=== PATIENT | female | born 1940 | race Caucasian/White ===

== ENCOUNTER → 2023-09-17 13:10 | Outpatient (REF) | payer MEDICARE, OTHER, SELFPAY | LOC: RAD 13:10 | PROVIDERS: ATTENDING PHYSICIAN Internal Medicine Critical Care Medicine | DX: I27.20 Pulmonary hypertension, unspecified (principal); R91.8 Other nonspecific abnormal finding of lung field | CPT/HCPCS: 71250 ==

== ENCOUNTER 2023-11-18 10:12 | Emergency (ER) | payer MEDICARE, OTHER, SELFPAY ==
[2023-11-18 10:38] VITALS: BP 127/57
[2023-11-18 11:01] LABS: % Basophils 0.2 % (0-2); % Eosinophils 0.1 % (0-6); % Immature Granulocytes 0.5 % (0-0.5); % Lymphocytes 4.7 % (20.5-51.1); % Monocytes 4.7 % (1.7-9.3); % Neutrophils 89.8 % (42.2-75.2); Absolute Lymphocytes 0.4 10^3/uL (1.2-3.4); Absolute Monocytes 0.4 10^3/uL (0.1-0.6); Absolute Neutrophils 7.3 10^3/uL (1.4-6.5); Hematocrit 39.5 % (37.0-47.0); Hemoglobin 13.4 g/dL (12.0-16.0); Mean Corp Hgb Conc. 33.9 g/dL (33.0-37.0); Mean Corpuscular Volume 97.3 fL (81.0-99.0); Mean Platelet Volume 9.8 fL (7.4-10.4); Nucleated Red Blood Cells % 0 %; Platelet Count 172 10^3/uL (130-400); Red Blood Cell Count 4.06 10^6/uL (4.20-5.40); Red Cell Dist. Width 14.6 % (11.5-14.5); White Blood Cell Count 8.2 10^3/uL (4.8-10.8)
[2023-11-18 11:19] LABS: ALT (SGPT) 49 U/L (0-35); AST (SGOT) 65 U/L (14-36); Albumin 4.3 g/dl (3.5-5.0); Alkaline Phosphatase 57 U/L (38-126); Blood Urea Nitrogen 15 mg/dl (7-17); Calcium 9.9 mg/dl (8.4-10.2); Carbon Dioxide 24 mmol/L (22-30); Chloride 104 mmol/L (98-107); Glucose 158 mg/dl (70-99); Potassium 3.8 mmol/L (3.5-5.1); Sodium 137 mmol/L (135-145); Total Bilirubin 0.5 mg/dl (0.2-1.3); Total Protein 7.6 g/dl (6.3-8.2); eGFR > 60.00
[2023-11-18 11:24] LABS: NT-proBNP 1190 pg/ml; Troponin I < 0.012 ng/ml
[2023-11-18 12:46] VITALS: BP 114/86
[2023-11-18 13:00] VITALS: BP 105/64
[2023-11-18 14:00] VITALS: BP 130/76
[2023-11-18] MEDS: DUONEB 3 ML INH (14:01)
--- NOTE | 2023-11-18 14:03 | ED.GENMED ---
History of Present Illness
General
Chief Complaint: Breathing Problem
Source: patient
Exam Limitations: none
Time Seen by Provider: 11/18/23 12:30
Nursing documentation reviewed up to this point in time: agreed with
Travel History
Have you had any contact with someone who has COVID-19?: No
Do you have any symptoms of coronavirus? Fever > 100 degrees, chills, cough, shortness of breath, sore throat, loss of taste or smell, muscle aches, or headache?: No
History of Present Illness
History of Present Illness:
pt is a 83 y/o F with h/o PE, afib on eliquis, CHF on lasix M/W/F, pul htn, chronic dyspnea
former smoker
here with sob x 5 days
has some nasal congestion and right ear popping as well'
dry cough and dyspnea with some chest tightness
she went to [facility] ([place] 2 days ago for theses ymptoms and was given instructions to inc pred to 40 x 3, 30 x 3 etc
she usually alternates between 10 mg and 5 mg
pt is on 3rd day of her pred 40 mg and she is not better so she is here to be sure there is nothing else going on
she deneis fever, chills, chest pain, leg swelling, vomiting, nausea
pt uses nasal saline and steroid and inhalers.
Past History
Past History
ED Past Medical History: Arrthythmia (afib), COPD, Other (lupus), Other (Pul HTN, Aortic regurg,Last echo 11/04/17 EF 55-60%, thickened aortic/mitral valves) and Other (PE 1975 while )
ED Past Surgical History: None
Patient has exhibited threatening behavior?: No
Social History
Tobacco: Former smoker
Alcohol: Occasional
Drug: None
Personal:
Living: with family
Employment: Employed
Family History
Family History: Hypertension
Review of Systems
Review of Systems
Allergies reviewed?: Yes
All Other Systems: Not applicable
Phy Exam
Physical Exam
Physical Exam:
GENERAL: Alert , in no apparent distress
EYE: pupils equal and reactive
NECK: Supple
ENT: o/p clr, mmm.
CARDIAC: Regular rate and rhythm .no edema
LUNGS: insp and exp wheezing throughout, moving good air, minimally tachypneic low 20s
ABDOMEN: Soft, without focal tenderness, no r/g, no cvat, normal bowel sounds
NEUROLOGICAL: Alert and oriented, no focal neuro deficits
SKIN: Warm and dry, skin intact.
MUSCULOSKELETAL: No edema, well perfused. neg zunilda's sign
PSYCH: Normal and appropriate interaction.
Scores
Heart Failure Risk
Heart Failure Risk Score: Not Applicable
Course
Orders/Labs/Results
Orders:
Orders
11/18/23 10:43
Electrocardiogram (*1) Urgent
Reason for Study: Other
Other Reason for Exam: Respiratory Distress
CR Chest - 2 Views Urgent
Comment:
Reason For Exam: respiratory distress
11/18/23 10:51
Complete Blood Count/With Diff Urgent
Comprehensive Metabolic Panel Urgent
NT-proBNP Urgent
Troponin I Urgent
11/18/23 13:42
Ipratropium/Albuterol Sulfate [Duoneb] 3 ml INH R NOW ONE
11/18/23 13:59
COVID-19 Antigen Urgent
Source: Nasal Swab
Influenza A+B Rapid Molecular Urgent
KARLENE Source: Nasal Swab
Specimen Description:
Abnormal Lab Results
11/18/23
10:51
RBC 4.06 L 10^6/uL
(4.20-5.40)
MCH 33.0 H pg
(27.0-31.0)
RDW 14.6 H %
(11.5-14.5)
Absolute Neuts (auto) 7.3 H 10^3/uL
(1.4-6.5)
Absolute Lymphs (auto) 0.4 L 10^3/uL
(1.2-3.4)
Neutrophils % 89.8 H %
(42.2-75.2)
Lymphocytes % 4.7 L %
(20.5-51.1)
Glucose 158 H mg/dl
(70-99)
AST 65 H U/L
(14-36)
ALT 49 H U/L
(0-35)
11/18/23 10:51
11/18/23 10:51
Vital Signs
Initial and Last Documented VS:
Initial Vital Signs
Temp Pulse Resp BP Pulse Ox
98.4 F 87 20 127/57 95
11/18/23 10:38 11/18/23 10:38 11/18/23 10:38 11/18/23 10:38 11/18/23 10:38
Last Documented Vital Signs
Temp Pulse Resp BP Pulse Ox
98.4 F 90 22 108/92 92
11/18/23 10:38 11/18/23 15:23 11/18/23 15:23 11/18/23 15:23 11/18/23 12:46
MDM/Problems Addressed
Differential Diagnosis Includes:
pulm htn, asthma, covid, flu, pneumonia, chf
MDM/Problems Addressed:
83 y/o F with h/o pulm htn, PE, afib on eliquis
here with sob/TURNER for the past few days, uri symptoms
seen by pulm and was instructed to increase her prednisone from 10-40 for 3 days, 30 for 3 days, 20 for 3 days, 10 for 3 days. She is on her third day of 40 and having the continued dyspnea and wheezing. She also has some right ear popping
sensation when she swallows and a little sinus pressure. Patient has not had a fever. On exam she is mildly tachypneic in the low 20s, has a pulse ox of 92% at rest. Otherwise is afebrile, has some wheezing in her lungs throughout but is moving
good air. She has no signs of CHF, no crackles and no edema. Her workup here shows a BNP of 1100 which is higher but significantly lower than her previous CHF exacerbation when she was in the . Her chest x-ray was independently reviewed by
me, there is no pneumonia or signs of heart failure. Patient's troponin was negative. Her EKG was nonischemic. She has a mild transaminitis. I suspect that she has a viral upper respiratory infection triggering her lung disease. She was given a
DuoNeb which cleared the wheezing. I spoke with her porcelain buildup assistant Dr. tripp who recommended that she go up to 40 mg for 5 total days and then go down by 10 every 5 days patient is very motivated to go home despite feeling slightly tachypneic
still after the wheezing resolved. She was able to ambulate around the department and speak normally, was mildly tachypneic but did not drop her pulse ox.
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 She is aware that she could end up returning for worsening shortness of breath or dyspnea but would like to trial going home with a longer steroid taper.
*Critical Care Note
Total Time (30-74mins, 75-104mins- exclusive of procedures): Not Applicable
ED Attending Note
-
Portions of this chart may have been created with voice recognition software.� Occasional wrong word or��sound alike� substitutions may have occurred due to the inherent limitations of voice recognition software.
Discharge Plan
Departure
Patient Disposition: Home (Routine Discharge)
Date of Disposition: 11/18/23
Time of Disposition: 15:30
Patient with high blood pressure during this ER visit?: No
Condition: Fair
Covid-19: Not Applicable
Discharge Problem:
Pulmonary hypertension, Wheezing
Instructions: Pulmonary Hypertension, Adult (DC)
Prescriptions:
New
prednisone 10 mg tablet
10 mg PO DIRECTED Qty: 20 0RF
Rx Instructions:
40 mg x 2 days, 30 mg x 2 days, 20 mg x 2 days, 10 mg x 2 days
No Action
ascorbic acid (vitamin C) [Vitamin C] 500 MG tablet
500 mg PO DAILY
vitamin E 268 mg (400 unit) Capsule
268 mg PO DAILY
furosemide 20 mg tablet
20 mg PO DAILY
prednisone 10 mg Tablet
10 mg PO DIRECTED
Patient Comments:
11/18/2023, pt. filled this med. on 11/16/2023; per pt., pt.'s instructions for how to take this med. just changed in the hospital to:
40 mg x 5 days
30 mg x 5 days
20 mg x 5 days
10 mg x 5 days
Rx Instructions:
11/18/2023,
40 mg x 3 days
30 mg x 3 days
20 mg x 3 days
10 mg x 3 days
diltiazem HCl 180 mg Capsule,Extended Release 24 Hr
180 mg PO DAILY
albuterol sulfate 1.25 mg/3 mL Solution For Nebulization
1.25 mg INHALATION R Q4HPRN PRN (Reason: sob)
benzonatate 100 mg Capsule
100 mg PO TID PRN (Reason: cough)
Systane (PF) 0.4-0.3 % Dropperette
1 drp BOTH EYES DAILY
cholecalciferol (vitamin D3) 25 mcg (1,000 unit) Tablet
25 mcg PO DAILY
Eliquis 2.5 mg Tablet
2.5 mg PO BID
Breztri Aerosphere 160-9-4.8 mcg/actuation Hfa Aerosol Inhaler
2 inh INHALATION R BID
Excedrin
2 tab PO DAILYPRN PRN (Reason: migraine)
Immune Globulin (Human)
1 dose IV Q4W
Referrals:
Liz Urena MD [Family Provider] -
Activity Restrictions/Additional Instructions:
Your workup here seems to be pointing toward pulmonary cause for your wheezing and shortness of breath. Your porcelain buildup assistant recommended that we keep you up on prednisone, 40 for 5 days total, then reduce to 30 mg once a day for 5 days, then 20 mg
once a day for 5 days, then 10 mg once a day for 5 days. Your chest x-ray did not show any obvious congestive heart failure but please continue to take the Lasix as instructed.
You were short of breath but maintained your oxygen when you walked around. Please have a very low threshold for returning to the ER for worsening shortness of breath or any chest discomfort with walking, worsening wheezing or any concerns.
For your ear symptoms you can use Flonase or what ever nasal steroid you that you use as well as Zyrtec once a day which is an antihistamine, this is [id number]. Sometimes a decongestant can also help that, you can try phenylephrine but be
cautious because this can raise your heart rate and with your atrial fibrillation it may not be a good idea to use this.
There was no sign of infection in your ear at this time. If you continue to have sinus pressure or ear pain or fluid behind your ear you may need additional treatment but hopefully the steroids will help.
Interventions
Interventions:
*Risk Screen - Suicide Last Done: 11/18/23 12:43
*General Assessment Last Done: 11/18/23 12:43
*Neglect/Abuse Screening Last Done: 11/18/23 12:43
ED- Fall Risk Assessment Last Done: 11/18/23 15:43
*ED COVID-19 Vaccine History Last Done: 11/18/23 10:38
*Nursing Disposition Last Done: 11/18/23 15:43
ED- Cardiac Assessment Last Done: 11/18/23 12:43
ED- Pulmonary Assessment Last Done: 11/18/23 12:43
Discharge Date and Time
Discharge Date/Time: 11/18/23 15:57
Print Language: YORUBA
[2023-11-18 14:23] LABS: COVID-19 Antigen Negative (Negative)
[2023-11-18 15:01] VITALS: BP 132/75
[2023-11-18 15:23] VITALS: BP 108/92
== END 2023-11-18 15:57 | disposition home or self-care (01) ==
LOC: EMR 10:12
PROVIDERS: Physician Assistant; EMERGENCY PHYSICIAN Student in an Organized Health Care Education/Training Program; FAMILY PHYSICIAN Internal Medicine
DX: I27.20 Pulmonary hypertension, unspecified (principal); R06.2 Wheezing; Z87.891 Personal history of nicotine dependence; I50.9 Heart failure, unspecified; Z79.01 Long term (current) use of anticoagulants; Z11.52 Encounter for screening for COVID-19
CPT/HCPCS: 99285; 94640; 71046; 80053; 83880; 84484; 85025; 87502; 87811; 93005

== ENCOUNTER → 2024-02-05 09:45 | Outpatient (REF) | payer MEDICARE, OTHER, SELFPAY | LOC: RAD 09:45 | PROVIDERS: ATTENDING PHYSICIAN Nurse Practitioner; FAMILY PHYSICIAN Internal Medicine | DX: J40 Bronchitis, not specified as acute or chronic (principal) | CPT/HCPCS: 71046 ==

== ENCOUNTER 2024-02-15 12:03 | Inpatient (IN) | payer MEDICARE, OTHER, SELFPAY ==
[2024-02-15 09:00] VITALS: BP 105/89; BMI 15.8
--- NOTE | 2024-02-15 09:21 | ED.GENMED ---
History of Present Illness
General
Chief Complaint: Breathing Problem
Source: patient, family and previous hospital records
Time Seen by Provider: 02/15/24 08:55
History of Present Illness
History of Present Illness:
This patient is an 83-year-old female with a variety of medical chronic problems who presents emergency department with increasing cough and dyspnea. Patient states she has not really been feeling her usual self for at least the last 7 to 10 days,
characterized by cough productive of yellow or green sputum, and increasing dyspnea. She also noted increasing lower extremity edema last week and her Lasix was increased from 20 to 40 mg with improvement. She has been in touch with her doctor and
was started on amoxicillin for a 7-day course which she finished last Thursday. She was told that there are abnormalities on her chest x-ray requiring pulmonary follow-up and she has an appointment this for that. Her prednisone was
changed from 10 to 20 mg and she has been also taking Mucinex as well as her usual medications. Patient denies anorexia, fever, chills, nausea, vomiting, chest pain. She does feel 'sore' in the thorax with cough. She denies urinary symptoms,
abdominal pain, back pain, or other complaints. Patient denies sore throat. She was diagnosed with COVID on January 22.
Past History
Past History
ED Past Medical History: Arrthythmia (afib), COPD, Other (lupus), Other (Pulm HTN, Aortic regurg,Last echo 11/04/17 EF 55-60%, thickened aortic/mitral valves) and Other (PE 1976 while , A-fib, hypertension, hyperlipidemia, COPD with
granulomatous disease)
Patient has exhibited threatening behavior?: No
Social History
Tobacco: Former smoker
Alcohol: Occasional
Drug: None
Personal:
Living: with family
Employment: Employed
Family History
Family History: Hypertension
Phy Exam
Physical Exam
Physical Exam:
GENERAL: Alert , in no apparent distress but obvious cough noted
EYE: pupils equal and reactive
NECK: Supple, no significant adenopathy.
ENT: o/p clr, mmm.
CARDIAC: Irregularly irregular
LUNGS: Equal breath sounds bilaterally, no acute respiratory distress, current cough, diffuse wheezes noted, no stridor
ABDOMEN: Soft, without focal tenderness, no r/g, no cvat
NEUROLOGICAL: Alert and oriented, no focal neuro deficits
SKIN: Warm and dry, skin intact.
MUSCULOSKELETAL: No edema, well perfused.
PSYCH: Normal and appropriate interaction.
Scores
Heart Failure Risk
Heart Failure Risk Score: Not Applicable
Course
Orders/Labs/Results
Orders:
Orders
02/15/24 08:58
ECG [Electrocardiogram (*1)] Urgent
Reason for Study: Shortness of Breath
EKG- Treatment ONCE
02/15/24 09:19
Cardiac Monitoring- Treatment ONCE
Pulse Ox/cont/shift [RESP] Urgent
Quantity: 1
02/15/24 09:20
Dexamethasone Sod Phosphate [Decadron] 8 mg IV NOW STA
Ipratropium/Albuterol Sulfate [Duoneb] 3 ml INH R NOW ONE
CR Chest - 2 Views Urgent
Comment:
Reason For Exam: hx pulmhtn/copd, now incr cough/sob
02/15/24 09:50
COVID-19 Antigen Stat
Source: Nasal Swab
Complete Blood Count/With Diff Urgent
Comprehensive Metabolic Panel Urgent
Lactic Acid Q4H
Comment: CANCEL 2nd LACTIC ACID IF 1st LACTIC ACID IS LESS THAN 2
NT-proBNP Urgent
Comment: ADD ON
Troponin I Urgent
Blood Culture Urgent
KARLENE Source: Blood/Venous
Specimen Description:
Influenza A+B Rapid Molecular Urgent
KARLENE Source: Nasal Swab
Specimen Description:
02/15/24 Lunch
2 Gram Sodium [Sodium, 2 Gram]
At Your Request: Limited Participation
02/15/24 10:50
Azithromycin 500 mg/250 ml [Zithromax Infusion] 500 mg in 250 ml IV NOW
Furosemide [Lasix] 40 mg IV NOW STA
02/15/24 11:06
Add On- LAB Urgent
Tests Added?: NT pro-BNP
02/15/24 11:45
Admit/Transfer Patient As Directed
Co-Sign Provider:
Level of Care: Inpatient admission
Assign to:: Medical/Surgical
Physician / Group: Susi
Diagnosis: Pneumonia
Reason for Hospitalization: IV antibiotics, pulmonary consult
Expected length of stay greater than two midnights?: Yes
ELOS- Estimated Length of Stay in days: 4
I certify the patient meets the requirements for IP care: Yes
02/15/24 11:47
Code Status As Directed
Resuscitation Status: Full Code
02/15/24 12:18
Sputum Culture [Respiratory Culture/Gram Stain] Routine
KARLENE Source: Sputum
Specimen Description:
Date Specimen was Collected: 02/15/24
Time Specimen was Collected: 12:15
02/15/24 15:11
Acetaminophen [Tylenol] 650 mg PO Q6HPRN PRN
02/15/24 15:24
PULMONARY CONSULT Routine
Consulting Provider: Jules Simeon
Was physician already notified: Yes
Activity As Directed
Activity Level: Ambulate
Acapella [Rx Pep / Acapela] [RESP] Routine
Incentive Spirometry [Rx Incentive Spirometry] [RESP] Routine
Frequency: q1h while awake
Ot Eval And Treat Routine
Pt Eval And Treat Routine
Activity Level: Ambulate
DX Deep Vein Thrombosis Video Routine
02/15/24 18:00
Enoxaparin Sodium [Lovenox] 30 mg SC QPM
02/16/24 12:00
Azithromycin 500 mg/250 ml [Zithromax Infusion] 500 mg in 250 ml IV Q24H
Abnormal Lab Results
02/15/24
09:50
WBC 13.6 H 10^3/uL
(4.8-10.8)
RBC 3.61 L 10^6/uL
(4.20-5.40)
Hct 34.4 L %
(37.0-47.0)
MCH 35.2 H pg
(27.0-31.0)
RDW 17.1 H %
(11.5-14.5)
Abs Immat Gran (auto) 0.1 H 10^3/uL
(0-0.05)
Absolute Neuts (auto) 11.3 H 10^3/uL
(1.4-6.5)
Absolute Lymphs (auto) 0.6 L 10^3/uL
(1.2-3.4)
Absolute Monos (auto) 1.5 H 10^3/uL
(0.1-0.6)
Immature Gran % 0.8 H %
(0-0.5)
Neutrophils % 83.0 H %
(42.2-75.2)
Lymphocytes % 4.3 L %
(20.5-51.1)
Monocytes % 11.3 H %
(1.7-9.3)
BUN 18 H mg/dl
(7-17)
Glucose 104 H mg/dl
(70-99)
Total Bilirubin 1.4 H mg/dl
(0.2-1.3)
AST 47 H U/L
(14-36)
ALT 38 H U/L
(0-35)
02/15/24 09:50
02/15/24 09:50
Vital Signs
Initial and Last Documented VS:
Initial Vital Signs
Temp Pulse Resp BP Pulse Ox
98.5 F 87 22 105/89 91
02/15/24 09:00 02/15/24 09:00 02/15/24 09:00 02/15/24 09:00 02/15/24 09:00
Last Documented Vital Signs
Temp Pulse Resp BP Pulse Ox
97.8 F 83 18 123/75 93
02/15/24 15:30 02/15/24 15:30 02/15/24 15:30 02/15/24 15:30 02/15/24 15:30
*Critical Care Note
Total Time (30-74mins, 75-104mins- exclusive of procedures): Not Applicable
Update Note
Update Note:
Patient presents to the Emergency Department with cough and increasing shortness of
Number and Complexity of Problems Addressed at the Encounter
� Chronic conditions affecting care:
� Acute Exacerbation and/or Progression of Chronic Illness:
� Differential Diagnosis includes: But not limited to PE (although unlikely given patient fully anticoagulated), pneumonia, COPD exacerbation, ACS, bronchospasm, etc. etc.
Amount and/or Complexity of Data to be Reviewed and Analyzed
� I performed an independent evaluation of and my interpretation is:
EKG: Read by me, normal rate, A-fib, no acute ischemia
CT:
Xrays:Patchy right upper lobe opacification and probable patchy right middle lobe opacification suspicious for pneumonia. Cannot exclude patchy lingular opacification such as pneumonia.
Likely tiny bilateral pleural effusions.
Laboratory Studies:sl wbc elevation (?steroid related--demargination?) with neutrophil predominance, nonspec sl lft abnl
Other:
� Review of other/old records reveals: Chest x-ray from most recent states 'Multiple small bands of opacity in the right middle lobe and lingula which are probably secondary to peripheral endobronchial impaction and raise
suspicion for acute on chronic atypical mycobacterial infection.
2. Moderate bilateral lung hyperinflation.
3. SEVERE PULMONARY ARTERIAL HYPERTENSION.
4. Chronic granulomatous disease infection with calcified left hilar lymph nodes and small left lower lobe pulmonary granulomas. '
� Clinical information was obtained by an independent historian: Son who is bedside, prior records...pt hospitalist 07/2003 with hypoxic res infuss, copd exac, flu, etc.
� Prescriptions/Medications Considered but not given:
� Further testing considered but not performed:
Risk of Complications and/or Morbidity or Mortality of Patient Management
� Social determinants of health affecting care:
� Discussion with other providers (PCP, Hospitalists, Consultants, etc):
� Escalation of care including admission/observation vs risk of discharge considered: 10:52 AM patient remains stable on nasal cannula overall persistent wet cough noted here. Patient advised to give sputum sample and collection
cup given to her. Case discussed with pulmonary, Dr. Garcia, and we agreed to give Zmax now given potential for Mycobacterium as noted on chest x-ray. Patient may have a concurrent element of heart failure in addition to her predominance of pulmonary
complaints, Lasix and BMP ordered, likely will need echo as inpatient. Case discussed with Joe naranjo hospitalist for admission.
83 yr old with cough/ sob, suspect pna/copd exac as most likley etiology for sxs, some improvement with neb here, recommend abx, nebs, steroids, etc.
ED Attending Note
-
Portions of this chart may have been created with voice recognition software.� Occasional wrong word or��sound alike� substitutions may have occurred due to the inherent limitations of voice recognition software.
Discharge Plan
Departure
Patient Disposition: Admit
Date of Disposition: 02/15/24
Time of Disposition: 10:55
Admit to: Telemetry
Admit to doctor: susi
Presentation/result/management discussed w/ accepting MD/DO: Hospitalist
Condition: Fair
Discharge Problem:
Pneumonia
Interventions
Interventions:
*Risk Screen - Suicide Last Done: 02/15/24 09:15
*General Assessment Last Done: 02/15/24 09:30
*Neglect/Abuse Screening Last Done: 02/15/24 09:15
ED- Fall Risk Assessment Last Done: 02/15/24 15:47
*ED COVID-19 Vaccine History Last Done: 02/15/24 09:30
*Nursing Disposition Last Done: 02/15/24 15:47
ED- Cardiac Assessment Last Done: 02/15/24 09:00
ED- Pulmonary Assessment Last Done: 02/15/24 10:14
Discharge Date and Time
Discharge Date/Time: 02/15/24 15:47
[2024-02-15] MEDS: DECADRON 8 MG IV (09:26)
[2024-02-15] MEDS: DUONEB 3 ML INH (09:27)
[2024-02-15 10:07] LABS: % Basophils 0.2 % (0-2); % Eosinophils 0.4 % (0-6); % Immature Granulocytes 0.8 % (0-0.5); % Lymphocytes 4.3 % (20.5-51.1); % Monocytes 11.3 % (1.7-9.3); Absolute Eosinophils 0.1 10^3/uL (0-0.7); Absolute Immature Granulocytes 0.1 10^3/uL (0-0.05); Absolute Lymphocytes 0.6 10^3/uL (1.2-3.4); Absolute Monocytes 1.5 10^3/uL (0.1-0.6); Absolute Neutrophils 11.3 10^3/uL (1.4-6.5); Hematocrit 34.4 % (37.0-47.0); Hemoglobin 12.7 g/dL (12.0-16.0); Mean Corp Hgb Conc. 36.9 g/dL (33.0-37.0); Mean Corpuscular Hgb 35.2 pg (27.0-31.0); Mean Corpuscular Volume 95.3 fL (81.0-99.0); Mean Platelet Volume 8.8 fL (7.4-10.4); Nucleated Red Blood Cells % 0 %; Platelet Count 215 10^3/uL (130-400); Red Blood Cell Count 3.61 10^6/uL (4.20-5.40); Red Cell Dist. Width 17.1 % (11.5-14.5); White Blood Cell Count 13.6 10^3/uL (4.8-10.8)
[2024-02-15 10:19] LABS: ALT (SGPT) 38 U/L (0-35); AST (SGOT) 47 U/L (14-36); Albumin 3.9 g/dl (3.5-5.0); Alkaline Phosphatase 79 U/L (38-126); Blood Urea Nitrogen 18 mg/dl (7-17); Carbon Dioxide 29 mmol/L (22-30); Chloride 99 mmol/L (98-107); Estimated Creatinine Clearance 36 ml/min; Glucose 104 mg/dl (70-99); Lactic Acid 1.1 mmol/L (0.7-2.0); Potassium 3.8 mmol/L (3.5-5.1); Sodium 135 mmol/L (135-145); Total Bilirubin 1.4 mg/dl (0.2-1.3); Total Protein 6.5 g/dl (6.3-8.2); eGFR > 60.00
[2024-02-15 10:23] LABS: COVID-19 Antigen Negative (Negative)
[2024-02-15 10:30] LABS: Troponin I < 0.012 ng/ml
[2024-02-15] MEDS: ZITHROMAX INFUSION 250 IV (11:32)
[2024-02-15] MEDS: LASIX 40 MG IV (11:33)
[2024-02-15 11:42] VITALS: BP 105/67
[2024-02-15 11:46] LABS: NT-proBNP 1010 pg/ml
--- NOTE | 2024-02-15 11:50 | HPS.HSE ---
Family Physician
-
Family Physician: MAURICE Figueroa
Chief Complaint
-
Cough, shortness of breath
History of Present Illness
83-year-old female diagnosed with COVID infection on January 22 and subsequently developed a cough 10 days after diagnosis. Completed a course of amoxicillin for 7 days last week but has persistent cough and shortness of breath and referred to the
emergency room. 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
Medical History
Past Medical History
Past Medical History: Reports Other
Additional Past Medical History:
Persistent atrial fibrillation
Chronic heart failure preserved EF
Essential hypertension
Valvular heart disease
Hyperlipidemia
COPD
Granulomatous lung disease
Pulmonary hypertension
Pulmonary embolism
SLE
Past Surgical History: Reports Other
Additional Past Surgical History:
Left nephrectomy
Social History
Tobacco: Former Smoker
Alcohol: None
Drug: None
Personal:
Living: With Family
Family History
Family History: Not pertinent
Allergies / Home Medications
Allergies reflects when Allergies were last updated in [facility].
Home Medications with original date entered in [facility]
Allergy/Medication List:
Allergies
Allergy/AdvReac Type Severity Reaction Status Date / Time
latex Allergy Rash/PT Verified 11/18/23 10:40
DENIES
Home Medications
ascorbic acid (vitamin C) 500 mg tablet (Vitamin C) 500 mg PO DAILY Supplement 05/24/21
vitamin E 268 mg (400 unit) capsule 268 mg PO DAILY Supplement 07/13/23
furosemide 20 mg tablet 20 mg PO DAILY 08/18/23
Excedrin 2 tab PO DAILYPRN PRN migraine 11/18/23
Immune Globulin (Human) 1 dose IV Q4W 11/18/23
albuterol sulfate 1.25 mg/3 mL solution for nebulization 1.25 mg inhalation R Q4HPRN PRN sob 11/18/23
apixaban 2.5 mg tablet (Eliquis) 2.5 mg PO BID 11/18/23
benzonatate 100 mg capsule 100 mg PO TID PRN cough 11/18/23
budesonide 160 mcg-glycopyr 9 mcg-formot 4.8 mcg/actuation HFA inhaler (Breztri Aerosphere) 2 inh inhalation R BID 11/18/23
cholecalciferol (vitamin D3) 25 mcg (1,000 unit) tablet 25 mcg PO DAILY 11/18/23
diltiazem HCl 180 mg capsule,24 hr,extended release 180 mg PO DAILY 11/18/23
peg 400-propylene glycol (PF) 0.4 %-0.3 % eye drops in a dropperette (Systane (PF)) 1 drp BOTH EYES DAILY 11/18/23
prednisone 10 mg tablet 10 mg PO DIRECTED 11/18/23
prednisone 10 mg tablet 10 mg PO DIRECTED #20 tabs 11/18/23
Review of Systems
-
History Source: Patient
A 12 point ROS was completed and negative except as noted: Yes
Respiratory: Reports Cough and Trouble Breathing
Physical Exam
Vital Signs
Vital Signs
Temp Pulse Resp BP Pulse Ox
98.5 F 81 26 105/89 91
02/15/24 09:00 02/15/24 11:33 02/15/24 09:45 02/15/24 11:33 02/15/24 10:14
Physical Exam
General: Well Developed, Well Nourished, No Apparent Distress and Comfortable
HEENT: NormoCephalic and Anicteric
Respiratory: Rhonchi
Cardiac: S1/S2 and Regular Rhythm
Breast: Deferred by me
GI: Soft, Non Tender and Non Distended
Genito-urinary: Deferred by me
Musculoskeletal: No Clubbing, No Cyanosis and No Edema
Skin: Warm and Dry
Neuro: AO x 3
Hematologic/Lymphatic: No Lymphadenopathy
Psych: Calm
Laboratory Results
-
02/15/24 09:50
02/15/24 09:50
Laboratory Results
Lactic Acid Cancelled 02/15/24 13:30
Total Bilirubin 1.4 mg/dl (0.2-1.3) H 02/15/24 09:50
AST 47 U/L (14-36) H 02/15/24 09:50
ALT 38 U/L (0-35) H 02/15/24 09:50
Alkaline Phosphatase 79 U/L (38-126) 02/15/24 09:50
Troponin I < 0.012 ng/ml 02/15/24 09:50
Impression/Plan
-
Acute hypoxic respiratory insufficiency -due to community-acquired pneumonia. Suspect atypical pneumonia such as mycobacterial infection given chest x-ray findings. She is immunosuppressed. Pulse ox 91% on 1 L.
Community-acquired pneumonia - Admit to [facility], continue IV antibiotics, check sputum culture, consult pulmonary.
Persistent atrial fibrillation - resume Eliquis.
Chronic heart failure preserved EF -patient claims she is gained weight but when compared to her previous weights she is actually down 10 kg.
COPD without exacerbation
SLE
Full code
[2024-02-15 12:01] VITALS: BP 108/57
--- NOTE | 2024-02-15 14:05 | CON.PUL ---
Consultation
Consultation Request
Date/Time Consultation Requested: 02/15/2024 - 113
Date/Time Consultation Performed: 02/15/2024 - 1250
Requesting Provider: Dr. Herman
Performing Provider: Dr. Simeon
Reason for Consultation: Pneumonia
Medical History
-
Chief Complaint: Cough
History of Present Illness:
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
with cough X 10 days with green�yellow phlegm. When EMS arrived SpO2 was 90-93%, and she was placed onto 4 L/min for transport here to ER. Patient had temperature of 100.7 �F this morning, and she took Tylenol for this. Last week she saw her
PCP who prescribed amoxicillin for 7 days as well as raised her prednisone to 20 mg daily patient afebrile in the ER at 98.5 �F, pulse rate 87, breathing at 22 breaths/min, BP 105/89 and saturating 91% on room air. Labs showed leukocytosis to 13.6,
Hb 12.7, T. bili 1.4, AST and ALT at their baseline which is slightly elevated, troponin negative x 1, proBNP 1010, and COVID antigen negative. Flu A/B swab also negative, and blood cultures were collected. CXR obtained showing RUL patchy
opacification with suspected RML opacification with small bilateral pleural effusions. Patient given Decadron, Zithromax, Lasix and DuoNebs and admitted to the hospitalist service. Pulmonary service now consulted for additional
management/recommendations.
When I saw the patient she was sitting in bed in no acute stress her daughter at bedside. She is on room air breathing comfortably but still has loss of voice with shortness of breath and cough. She says her shortness of breath has been worsening
over the last few days but her SOB + cough have really been worsening since she was diagnosed with COVID-19 on 01/23/2024. She is also been more fatigued since that time. She has been using the nebulized albuterol about 3�4 x a day in addition to
her Breztri. She denies chest pain, headache, abd pain, fevers or chills.
Of note patient follows with us in the office with Dr. Shultz with last office visit on 12/15/2023. Patient is COPD/asthma and is continued on Breztri and nebulized albuterol 3-4x daily. She receives monthly IVIG for hypogammaglobulinemia. She
follows with Dr. [facility] for dermatopolymyositis, and the patient is being considered for CellCept and being weaned off of prednisone which is currently at 10 mg daily and was previously at 40 mg daily at this
last pulmonary office visit. Patient's last full was in August 2023 showing mild COPD with a positive/nonsignificant bronchodilator response, with normal diffusion capacity (DLco: 80%; DLco/VA: 80%). Her next appointment with our office is on
02/18/2024.
PMHx: COPD/asthma on chronic prednisone + breztri, history of PE, history of HSV, history of pericarditis, hypogammaglobulinemia on IVIG, history of thrombocytopenia, pulmonary hypertension (Dx in 2015), history of pneumonia, Lambl's excrescences,
dermatopolymyositis (Dx in 2013), aortic valve disease, persistent A-fib on Eliquis
PSHx: Left partial nephrectomy, vein ligation
Past Medical History
Past Medical History: Other (Above as per HPI)
Past Surgical History: Other (Above as per HPI)
Social History
Tobacco: Former Smoker
Alcohol: None
Drug: None
Family History
Family History: Cancer (Sibling: Colon cancer) and Other (Father: COPD/emphysema)
Allergies / Home Medications
Allergies
Allergy/AdvReac Type Severity Reaction Status Date / Time
latex Allergy Rash/PT Verified 11/18/23 10:40
DENIES
Home Medications
�Medication �Instructions �Recorded �Confirmed �Last Taken �Type
ascorbic acid (vitamin C) 500 mg 500 mg PO DAILY Supplement 05/24/21 02/15/24 02/15/24 History
tablet (Vitamin C)
vitamin E 268 mg (400 unit) capsule 268 mg PO DAILY Supplement 07/13/23 02/15/24 02/15/24 History
furosemide 20 mg tablet 40 mg PO DAILY 08/18/23 02/15/24 02/15/24 History
albuterol sulfate 1.25 mg/3 mL 1.25 mg inhalation R Q4HPRN PRN sob 11/18/23 02/15/24 02/14/24 History
solution for nebulization
apixaban 2.5 mg tablet (Eliquis) 2.5 mg PO BID 11/18/23 02/15/24 02/15/24 History
benzonatate 100 mg capsule 100 mg PO TIDPRN PRN cough 11/18/23 02/15/24 02/15/24 History
budesonide 160 mcg-glycopyr 9 2 inh inhalation R BID 11/18/23 02/15/24 02/15/24 History
mcg-formot 4.8 mcg/actuation HFA
inhaler (Breztri Aerosphere)
diltiazem HCl 180 mg capsule,24 180 mg PO DAILY 11/18/23 02/15/24 02/15/24 History
hr,extended release
peg 400-propylene glycol (PF) 0.4 1 drp BOTH EYES DAILY 11/18/23 02/15/24 02/15/24 History
%-0.3 % eye drops in a dropperette
(Systane (PF))
Xclear 1 spray intranasal BID 02/15/24 02/15/24 02/15/24 History
uetatzh-fmolgkjxmsczv-mwgqptln 250 1 tab PO DAILYPRN PRN migraine 02/15/24 02/15/24 02/15/24 History
mg-250 mg-65 mg tablet (Excedrin
Migraine)
cholecalciferol (vitamin D3) 50 50 mcg PO DAILY 02/15/24 02/15/24 02/15/24 History
mcg (2,000 unit) tablet (Vitamin
D3)
codeine 10 mg-guaifenesin 100 mg/5 10 ml PO DAILYPRN PRN cough 02/15/24 02/15/24 02/14/24 History
mL oral liquid
magnesium oxide 1,000 mg PO HS 02/15/24 02/15/24 02/14/24 History
prednisone 10 mg tablet 20 mg PO DAILY 02/15/24 02/15/24 02/15/24 History
zinc sulfate 50 mg zinc (220 mg) 120 mg PO DAILY 02/15/24 02/15/24 02/15/24 History
capsule
Review of Systems
-
History Source: Patient
All other systems: Negative unless noted
Vitals / Labs / Diagnostic Testing
Vital Signs
Temp Pulse Resp BP Pulse Ox
98.5 F 100 19 105/67 93
02/15/24 09:00 02/15/24 11:45 02/15/24 10:30 02/15/24 11:42 02/15/24 11:45
Lab Data
02/15/24 09:50
02/15/24 09:50
Microbiology
02/15/24 12:18 Sputum Gram Stain - Preliminary
02/15/24 09:50 Nasal Swab Influenza Types A & B (ANITRA) - Final
Negative for Influenza A & B, NAAT
Negative results must be combined with clinical observations
and patient history.
Nucleic Acid Amplification test (NAAT)performed on the
[employer] platform.
Diagnostic Testing:
Physical Exam
-
HEENT: Normocephalic and Anicteric
Cardiovascular: Irregular Rhythm, Peripheral Edema (Negative) and Other (Tachycardic)
Respiratory: Wheeze (Negative), Rales (Bilaterally), Rhonchi (Negative) and Accessory Resp Muscle Use (Mild during conversation)
GI: Soft, Non Distended, Non Tender and Normal Bowel Sounds
Neurology: AO x 3 and Tremors (Negative)
Skin: Warm and Dry
General: Comfortable and Fever (Negative)
Assessment
-
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
who presents with cough X 10 days with green�yellow phlegm. When EMS arrived SpO2 was 90-93%, and she was placed onto 4 L/min for transport here to ER. Patient had temperature of 100.7 �F this morning, and she took Tylenol for this. Last week
she saw her PCP who prescribed amoxicillin for 7 days as well as raised her prednisone to 20 mg daily patient afebrile in the ER at 98.5 �F, pulse rate 87, breathing at 22 breaths/min, BP 105/89 and saturating 91% on room air. Labs showed
leukocytosis to 13.6, Hb 12.7, T. bili 1.4, AST and ALT at their baseline which is slightly elevated, troponin negative x 1, proBNP 1010, and COVID antigen negative. Flu A/B swab also negative, and blood cultures were collected. CXR obtained
showing RUL patchy opacification with suspected RML opacification with small bilateral pleural effusions. Patient given Decadron, Zithromax, Lasix and DuoNebs and admitted to the hospitalist service. Pulmonary service now consulted for additional
management/recommendations.
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
Lambl's excrescences, dermatopolymyositis (Dx in 2013), aortic valve disease, persistent A-fib on Eliquis
Impression:
#CAP - right-sided (failed outpatient ABx - Amoxicillin 500mg BID x 7 days)
#Acute respiratory failure with hypoxia due to above
#Recently diagnosed with COVID-19 (January 2024) with postviral cough + post-infectious fatigue
#COPD/asthma on chronic prednisone + Breztri - in an acute exacerbation from CAP
#Transaminitis -AST + ALT are chronically elevated slightly, however T. bili is now newly elevated at 1.4
#Hx of dermatopolymyositis - [facility] with Dr. Savage
#Persistent A-fib on Eliquis
Plan:
- Continue broad-spectrum antibiotics with azithromycin/Rocephin
- Resume Symbicort + Spiriva and nebulized albuterol QID + prn albuterol in between for breakthrough symptoms
- Anti-tussants prn
- Infectious workup with blood + Sputum Cx and urine antigens for Legionella + Strep pneumonia
- Maintain SpO2 >88-94% with supplemental O2 as needed
- Raise steroids to 40mg daily and wean down by 10mg every 4th day until back at her home dose of 10mg daily
- Incentive spirometer encouraged
- Replete electrolytes with K>4, Mg>2
- Maintain euglycemia with goal BG >100 and <180
- DVT ppx - Eliquis
Pulmonary service will continue to follow along.
Total time spent today was 55 minutes for this encounter. Time includes reviewing laboratory test/imaging results, reviewing pertinent medical records, obtaining and reviewing medical history, performing an appropriate exam, ordering medications,
tests and procedures. Time also includes documentation of this encounter, coordinating patient care and communicating with other healthcare professionals. Total time does not include separately billed tests performed on this date of service.
Data:
CXR 02-15-2024:
Patchy right upper lobe opacification and probable patchy right middle lobe opacification suspicious for pneumonia. Cannot exclude patchy lingular opacification such as pneumonia.
Likely tiny bilateral pleural effusions.
[2024-02-15] MEDS: TYLENOL 650 MG PO ×2 (15:14→23:15)
[2024-02-15 15:30] VITALS: BP 123/75; BMI 21.2
[2024-02-15 15:56] VITALS: BMI 21.2
[2024-02-15] MEDS: ROCEPHIN 1000 MG IV (19:56)
[2024-02-15] MEDS: ELIQUIS 2.5 MG PO (19:56)
[2024-02-15] MEDS: STERILE WATER FOR INJECTION 10 ML IV (19:57)
[2024-02-15] MEDS: SYMBICORT 160/4.5 MCG INHALER 2 PUFF INH (20:27)
[2024-02-15] MEDS: VENTOLIN NEBULES 2.5 MG INH (20:27)
[2024-02-15 20:40] LABS: Urine Albumin Trace (Neg - Trace); Urine Bilirubin 1+ (Negative); Urine Character Clear (Clear); Urine Color Yellow; Urine Glucose Negative (Negative); Urine Ketone Negative (Negative); Urine Leukocyte Trace (Negative); Urine Nitrite Negative (Negative); Urine Occult Blood Trace (Negative); Urine Specific Gravity 1.015 (<1.030); Urine Urobilinogen Negative (Neg - 1+)
[2024-02-15 20:50] LABS: Urine Red Blood Cell 0-2 /HPF (0-2); Urine White Cell 0-2 /HPF (0-5)
[2024-02-15] MEDS: MAGNESIUM OXIDE 1000 MG PO (21:23)
[2024-02-15] MEDS: TESSALON PERLES 100 MG PO (21:23)
[2024-02-15 23:45] VITALS: BP 114/58
[2024-02-16] MEDS: TESSALON PERLES 100 MG PO ×2 (04:10→17:30)
[2024-02-16 06:00] VITALS: BMI 21.4
[2024-02-16 07:12] VITALS: BP 113/70
[2024-02-16] MEDS: SYMBICORT 160/4.5 MCG INHALER 2 PUFF INH ×2 (08:04→20:03)
[2024-02-16] MEDS: VENTOLIN NEBULES 2.5 MG INH ×4 (08:04→20:03)
[2024-02-16] MEDS: SPIRIVA RESPIMAT 2.5 MCG 2 PUFF INH (08:04)
[2024-02-16 09:17] VITALS: BP 132/85; PULSE 124; PULSE 96; O2SAT 94
[2024-02-16] MEDS: TYLENOL 650 MG PO ×2 (09:31→20:53)
[2024-02-16] MEDS: CARDIZEM CD 180 MG PO (09:31)
[2024-02-16] MEDS: VITAMIN C 500 MG PO (09:31)
[2024-02-16] MEDS: ZINC SULFATE 220 MG PO (09:31)
[2024-02-16] MEDS: ELIQUIS 2.5 MG PO ×2 (09:31→20:55)
[2024-02-16] MEDS: LASIX 40 MG PO (09:31)
[2024-02-16] MEDS: VITAMIN D3 (cholecalciferol) 50 MCG PO (09:31)
[2024-02-16] MEDS: DELTASONE 40 MG PO (09:32)
--- NOTE | 2024-02-16 09:33 | PTOTSP ---
PATIENT NOTED TO BE INDEPENDENT WITH MOBILITY ON LEVEL SURFACES WELL ELEVATIONS. NOTED TO BE 89% POST AMBULATION TO GYM/ELEVATIONS. OTHERWISE NO LOWER THAN 90%. RN AWARE. PATIENT ENCOURAGED TO CONTINUE TO BE MOBILE IN THE ROOM AND TO AMBULATE
IN HALLS. PATIENT AGREEABLE. WILL DISCHARGE FROM P.T. SERVICES AT THIS TIME.
--- NOTE | 2024-02-16 10:30 | W.PN.HOSP.TC ---
Addendum entered and electronically signed by Pedro Herman DO 02/16/24 13:08:
documentation complete
Original Note:
Today's Communication/Plan
-
Continue current care
Assessment / Plan
Assessment / Plan
Gen-AAOx3, NAD
HEENT-NC, AT, anicteric, clear oral mm
Neck-supple
CV-reg, no M, +S1/S2
Lungs-clear B/L
Abd-soft, NT, ND
Ext-no edema
Musculoskeletal-no cyanosis, clubbing
Skin-warm and dry
Neuro-grossly non-focal
Psych-calm, cooperative
Acute hypoxic respiratory insufficiency -due to community-acquired pneumonia. Suspect atypical pneumonia such as mycobacterial infection given chest x-ray findings. She is immunosuppressed. Oxygenation stable on 2 L nasal cannula.
Community-acquired pneumonia -slowly improving. Continue antibiotics. Chest x-ray shows patchy right upper lobe and right middle lobe opacification. Pulmonary has increased dose of prednisone to 40 mg daily.
Persistent atrial fibrillation -continue Eliquis.
Chronic heart failure preserved EF -patient claims she is gained weight but when compared to her previous weights she is actually down 10 kg.
COPD without exacerbation
SLE
Full code
Anticipated Discharge: Within 24 hours
Subjective/Interval History
-
Date of Service: February 16, 2024
Patient seen and examined. Still with dyspnea on exertion, cough.
Objective Data
-
Vital Signs:
Vital Signs
Temp Pulse Resp BP Pulse Ox
98.3 F 68 18 113/70 96
02/16/24 07:12 02/16/24 08:19 02/16/24 08:19 02/16/24 07:12 02/16/24 08:19
I&O
02/15/24 02/16/24 02/17/24
06:59 06:59 06:59
Intake Total 720 / 720
Balance 720 / 720
Review of Systems
-
History Source: Patient
All other systems: Reviewed and negative
--- NOTE | 2024-02-16 11:13 | PN.CDI ---
CDI
- -
CDI:
Physician Documentation Request
Admit Date: 02/15/24 12:03
Dear Doctor Virgil,
Patient admitted with pneumonia.
Hospitalist progress notes state 'COPD without exacerbation'
Pulmonary consultation states ' COPD/asthma on chronic prednisone + Breztri - in an acute exacerbation from CAP'
In an attempt to clarify potential conflicting documentation, please clarify the following:
COPD without exacerbation
COPD with exacerbation
Other
Use of terms such as suspected, likely, concern for, or probable (associated with a specific diagnosis that is being evaluated, monitored, or treated as if it exists) are acceptable and can be coded in the inpatient setting, when documented at the
time of discharge.
Thank you,
Gwendolyn Cleveland RN, BSN
CDI Specialist
tiger text
Please use your independent medical judgment in providing your response.
--- NOTE | 2024-02-16 11:47 | W.PN.PUL3 ---
Today's Communication / Plan
-
Prednisone with extended taper given chronic OCS use
Abx -plan for early 7 days total
Maintenance inhalers + nebulized albuterol w/ prn doses in between
Anti-tussants prn
Trend LFTs
Follow-up sputum + blood culture - NGTD
NOX study tonight
Assessment
-
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
who presents with cough X 10 days with green�yellow phlegm. When EMS arrived SpO2 was 90-93%, and she was placed onto 4 L/min for transport here to ER. Patient had temperature of 100.7 �F this morning, and she took Tylenol for this. Last week
she saw her PCP who prescribed amoxicillin for 7 days as well as raised her prednisone to 20 mg daily patient afebrile in the ER at 98.5 �F, pulse rate 87, breathing at 22 breaths/min, BP 105/89 and saturating 91% on room air. Labs showed
leukocytosis to 13.6, Hb 12.7, T. bili 1.4, AST and ALT at their baseline which is slightly elevated, troponin negative x 1, proBNP 1010, and COVID antigen negative. Flu A/B swab also negative, and blood cultures were collected. CXR obtained
showing RUL patchy opacification with suspected RML opacification with small bilateral pleural effusions. Patient given Decadron, Zithromax, Lasix and DuoNebs and admitted to the hospitalist service. Pulmonary service now consulted for additional
management/recommendations.
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
Lambl's excrescences, dermatopolymyositis (Dx in 2013), aortic valve disease, persistent A-fib on Eliquis
Impression:
#CAP - right-sided (failed outpatient ABx - Amoxicillin 500mg BID x 7 days)
#Acute respiratory failure with hypoxia due to above not on oxygen therapy
#Recently diagnosed with COVID-19 (January 2024) with postviral cough + post-infectious fatigue
#COPD/asthma on chronic prednisone + Breztri - in an acute exacerbation from CAP
#Transaminitis -AST + ALT are chronically elevated slightly, however T. bili is now newly elevated at 1.4
#Hx of dermatopolymyositis - [facility] with Dr. Savage
#Persistent A-fib on Eliquis
Plan:
- Continue broad-spectrum antibiotics with azithromycin/Rocephin
- Continue Symbicort + Spiriva and nebulized albuterol QID + prn albuterol in between for breakthrough symptoms
- Anti-tussants prn
- Infectious workup with blood + Sputum Cx and urine antigens for Legionella + Strep pneumonia
- Maintain SpO2 >88-94% with supplemental O2 as needed
- Raised steroids to 40mg daily and wean down by 10mg every 5th day until back at her home dose of 10mg daily
- Check NOX study tonight
- Incentive spirometer encouraged
- Trend LFTs
- Replete electrolytes with K>4, Mg>2
- Maintain euglycemia with goal BG >100 and <180
- DVT ppx - Eliquis
Pulmonary service will continue to follow along. We will arrange for outpatient follow-up with Dr. Shultz when she is ready for discharge.
Total time spent today was 35 minutes for this encounter. Time includes reviewing laboratory test/imaging results, reviewing pertinent medical records, obtaining and reviewing medical history, performing an appropriate exam, ordering medications,
tests and procedures. Time also includes documentation of this encounter, coordinating patient care and communicating with other healthcare professionals. Total time does not include separately billed tests performed on this date of service.
Data:
CXR 7-8-2024:
Patchy right upper lobe opacification and probable patchy right middle lobe opacification suspicious for pneumonia. Cannot exclude patchy lingular opacification such as pneumonia.
Likely tiny bilateral pleural effusions.
Subjective Data
-
Date of Service:
Date of Service: February 16, 2024
Chief Complaint: Pulmonary Follow Up
Subjective:
Patient seen and evaluated today at bedside. She feels better but still is coughing and has slight headache. Daughter at bedside and I spoke to her as well and answered all questions. Patient currently on room air and reportedly was walked with
testing a pulse oximetry and did not require any oxygen therapy.
Review of Systems
General: Other (Negative unless mentioned above)
Objective Data
Data Reviewed
Vital Signs / I&O / Oxygen:
Vital Signs
Temp Pulse Resp BP Pulse Ox
98.3 F 69 18 113/70 96
02/16/24 07:12 02/16/24 11:34 02/16/24 11:34 02/16/24 07:12 02/16/24 11:34
Intake and Output
02/15/24 02/16/24 02/17/24
06:59 06:59 06:59
Intake Total 720 / 720
Balance 720 / 720
SaO2 96
Nasal Cannula flow liters per 2
minute
Physical Exam
General: Respiratory Distress (Negative) and Comfortable
HEENT: Normocephalic and Anicteric
Cardiovascular: Irregular Rhythm (Irregularly irregular) and Other
Respiratory: Wheeze (Negative), Rhonchi (Negative), Non-Labored Respirations and Other (Coarse breath sounds heard bilaterally)
GI: Soft, Non Distended, Non Tender and Normal Bowel Sounds
Neurology: AO x 3 and Tremors (Negative)
Skin: Warm, Dry and Jaundice (Negative)
Labs/Micro/Reports
Lab Data
02/15/24 09:50
02/15/24 09:50
Microbiology
02/15/24 09:50 Blood/Venous Blood Culture - Preliminary
No Growth in 24 hours- Final report to follow
02/15/24 12:18 Sputum Respiratory Culture - Preliminary
02/15/24 12:18 Sputum Gram Stain - Preliminary
02/15/24 20:24 Urine Legionella Urinary Antigen - Final
Negative for Legionella pneumophila Serogroup 1 antigen.
A negative result does not rule out the possiblity of
Legionella infection due to other serogroups or species of
Legionella. Clinical correlation is recommended.
02/15/24 20:24 Urine Streptococcus pneumoniae Antigen (M - Final
Negative for Streptococcus pneumoniae antigen.
A negative result does not exclude infection with
Streptococcus pneumoniae. Clinical correlation is
recommended.
02/15/24 09:50 Nasal Swab Influenza Types A & B (ANITRA) - Final
Negative for Influenza A & B, NAAT
Negative results must be combined with clinical observations
and patient history.
Nucleic Acid Amplification test (NAAT)performed on the
[employer] platform.
--- NOTE | 2024-02-16 12:03 | CM ---
Patient seen bedside, initial assessment completed. Patient resides with her who she helps care for as he has Alzheimers. Patient resides in a multiple story home, four steps to enter. Patient denies the use of DME or VN, reports she is
still driving. Patient reports she has family support from her children and daughter/son in laws. Patient confirms PCP Mimi Cooper, pharmacy [facility] on [facility]. CM will continue to follow for all discharge planning needs.
Plan; home no needs likely.
[2024-02-16] MEDS: ZITHROMAX INFUSION 250 IV (13:00)
[2024-02-16] MEDS: VISBIOME 1 CAP PO (14:16)
[2024-02-16 15:24] VITALS: BP 130/79
[2024-02-16] MEDS: ROCEPHIN 1000 MG IV (20:54)
[2024-02-16] MEDS: ROBITUSSIN 200 MG PO (20:54)
[2024-02-16] MEDS: ANESTHETIC LOZENGE 1 LOZENGE PO (20:55)
[2024-02-16] MEDS: STERILE WATER FOR INJECTION 10 ML IV (20:55)
[2024-02-16] MEDS: MAGNESIUM OXIDE 1000 MG PO (20:56)
[2024-02-16] MEDS: MELATONIN 5 MG PO (21:52)
[2024-02-16 23:05] VITALS: BP 108/72
[2024-02-17 07:25] VITALS: BP 121/74
[2024-02-17] MEDS: SPIRIVA RESPIMAT 2.5 MCG 2 PUFF INH (08:15)
[2024-02-17] MEDS: VENTOLIN NEBULES 2.5 MG INH ×4 (08:16→20:36)
[2024-02-17] MEDS: SYMBICORT 160/4.5 MCG INHALER 2 PUFF INH ×2 (08:16→20:36)
[2024-02-17 09:00] LABS: % Basophils 0.1 % (0-2); % Immature Granulocytes 0.6 % (0-0.5); % Lymphocytes 9.1 % (20.5-51.1); % Monocytes 9.8 % (1.7-9.3); % Neutrophils 80.4 % (42.2-75.2); Absolute Immature Granulocytes 0.1 10^3/uL (0-0.05); Absolute Monocytes 1.1 10^3/uL (0.1-0.6); Absolute Neutrophils 9.1 10^3/uL (1.4-6.5); Hemoglobin 12.4 g/dL (12.0-16.0); Mean Corp Hgb Conc. 35.4 g/dL (33.0-37.0); Mean Corpuscular Hgb 32.5 pg (27.0-31.0); Mean Corpuscular Volume 91.6 fL (81.0-99.0); Mean Platelet Volume 9.1 fL (7.4-10.4); Nucleated Red Blood Cells % 0 %; Platelet Count 252 10^3/uL (130-400); Red Blood Cell Count 3.82 10^6/uL (4.20-5.40); Red Cell Dist. Width 15.4 % (11.5-14.5); White Blood Cell Count 11.4 10^3/uL (4.8-10.8)
[2024-02-17] MEDS: VISBIOME 1 CAP PO (09:00)
[2024-02-17] MEDS: VITAMIN C 500 MG PO (09:01)
[2024-02-17] MEDS: ZINC SULFATE 220 MG PO (09:01)
[2024-02-17] MEDS: VITAMIN D3 (cholecalciferol) 50 MCG PO (09:02)
[2024-02-17] MEDS: CARDIZEM CD 180 MG PO (09:02)
[2024-02-17] MEDS: DELTASONE 40 MG PO (09:02)
[2024-02-17] MEDS: LASIX 40 MG PO (09:02)
[2024-02-17] MEDS: ELIQUIS 2.5 MG PO ×2 (09:03→21:44)
[2024-02-17] MEDS: TYLENOL 650 MG PO ×3 (09:05→21:47)
[2024-02-17] MEDS: ROBITUSSIN 200 MG PO ×3 (09:06→19:03)
[2024-02-17] MEDS: TESSALON PERLES 100 MG PO ×2 (09:06→21:46)
[2024-02-17 09:47] LABS: ALT (SGPT) 46 U/L (0-35); AST (SGOT) 56 U/L (14-36); Albumin 3.8 g/dl (3.5-5.0); Alkaline Phosphatase 76 U/L (38-126); Blood Urea Nitrogen 31 mg/dl (7-17); Calcium 9.6 mg/dl (8.4-10.2); Carbon Dioxide 29 mmol/L (22-30); Chloride 97 mmol/L (98-107); Estimated Creatinine Clearance 47 ml/min; Glucose 105 mg/dl (70-99); Magnesium 2.5 mg/dl (1.6-2.3); Phosphorus 3.1 mg/dl (2.5-4.5); Potassium 4.4 mmol/L (3.5-5.1); Sodium 135 mmol/L (135-145); Total Bilirubin 0.6 mg/dl (0.2-1.3); Total Protein 6.5 g/dl (6.3-8.2); eGFR > 60.00
--- NOTE | 2024-02-17 10:13 | W.PN.PUL3 ---
Today's Communication / Plan
-
Prednisone with extended taper given chronic OCS use
Abx -plan for 7 days total beta-lactam, 5 days zithromax
Maintenance inhalers + nebulized albuterol w/ prn doses in between
Anti-tussants prn
Trend LFTs
Follow-up sputum + blood culture - NGTD
Start 2L/min with sleep
Assessment
-
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
who presents with cough X 10 days with green�yellow phlegm. When EMS arrived SpO2 was 90-93%, and she was placed onto 4 L/min for transport here to ER. Patient had temperature of 100.7 �F this morning, and she took Tylenol for this. Last week
she saw her PCP who prescribed amoxicillin for 7 days as well as raised her prednisone to 20 mg daily patient afebrile in the ER at 98.5 �F, pulse rate 87, breathing at 22 breaths/min, BP 105/89 and saturating 91% on room air. Labs showed
leukocytosis to 13.6, Hb 12.7, T. bili 1.4, AST and ALT at their baseline which is slightly elevated, troponin negative x 1, proBNP 1010, and COVID antigen negative. Flu A/B swab also negative, and blood cultures were collected. CXR obtained
showing RUL patchy opacification with suspected RML opacification with small bilateral pleural effusions. Patient given Decadron, Zithromax, Lasix and DuoNebs and admitted to the hospitalist service. Pulmonary service now consulted for additional
management/recommendations.
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
Lambl's excrescences, dermatopolymyositis (Dx in 2013), aortic valve disease, persistent A-fib on Eliquis
Impression:
#CAP - right-sided (failed outpatient ABx - Amoxicillin 500mg BID x 7 days) due to Haemophilus influenzae
#Acute respiratory failure with hypoxia due to above not on oxygen therapy
#Nocturnal hypoxia
#Recently diagnosed with COVID-19 (January 2024) with post-viral cough + post-infectious fatigue; this is also the likely etiology of her hoarse voice
#COPD/asthma on chronic prednisone + Breztri - in an acute exacerbation from CAP
#Transaminitis -AST + ALT are chronically elevated slightly, however T. bili is elevated at 1.4 --> T. bili now normalized
#Hx of dermatopolymyositis - follows [facility] with Dr. Savage
#Persistent A-fib on Eliquis
#Reported Hx of lupus
Plan:
- Continue broad-spectrum antibiotics with azithromycin/Rocephin
- Complete 5 days zithromax, 7 days rocephin
- Continue Symbicort + Spiriva and nebulized albuterol QID + prn albuterol in between for breakthrough symptoms
- Anti-tussants prn
- Throat lozenges prn
- Follow up infectious workup with blood + Sputum Cx and urine antigens for Legionella + Strep pneumonia
- Maintain SpO2 >88-94% with supplemental O2 as needed
- Continue systemic steroids w/ 40mg daily and wean down by 10mg every 4th day until back at her home dose of 10mg daily
- NOX study overnight (02/15 - 02/17/2024) showed time with SpO2 <89% of 8 minutes 56 seconds � this qualifies her for O2 with sleep --> patient should be started on nocturnal oxygen at 2 L/min
- In an attempt to try to get her off of chronic prednisone, perhaps she would be a candidate for biologic treatment with either Dupixent versus Tezspire -this can be discussed in the office; unfortunately I see no evidence of eosinophilia with
absolute eos <150 over last 1 year, hence she would not be a candidate for nucala or fasenra
- Incentive spirometer encouraged
- Trend LFTs
- Replete electrolytes with K>4, Mg>2
- Maintain euglycemia with goal BG >100 and <180
- DVT ppx - Eliquis
Pulmonary service will continue to follow along. We will arrange for outpatient follow-up with Dr. Shultz when she is ready for discharge.
Total time spent today was 35 minutes for this encounter. Time includes reviewing laboratory test/imaging results, reviewing pertinent medical records, obtaining and reviewing medical history, performing an appropriate exam, ordering medications,
tests and procedures. Time also includes documentation of this encounter, coordinating patient care and communicating with other healthcare professionals. Total time does not include separately billed tests performed on this date of service.
Data:
CXR 02-15-2024:
Patchy right upper lobe opacification and probable patchy right middle lobe opacification suspicious for pneumonia. Cannot exclude patchy lingular opacification such as pneumonia.
Likely tiny bilateral pleural effusions.
Subjective Data
-
Date of Service:
Date of Service: February 17, 2024
Chief Complaint: Pulmonary Follow Up
Subjective:
Seen today at bedside. She feels worse today. Was hopeful she could go home today but she did not feel well when I saw her, endorsing headache and feeling malaise. She denies chest pain, abd pain, N/V/f/c.
Review of Systems
General: Other (neg unless mentioned above)
Objective Data
Data Reviewed
Vital Signs / I&O / Oxygen:
Vital Signs
Temp Pulse Resp BP Pulse Ox
97.9 F 75 18 121/74 95
02/17/24 07:25 02/17/24 08:17 02/17/24 08:17 02/17/24 07:25 02/17/24 08:17
Intake and Output
02/16/24 02/17/24 02/18/24
06:59 06:59 06:59
Intake Total 720 / 720 1330 / 1330
Balance 720 / 720 1330 / 1330
SaO2 95
Nasal Cannula flow liters per 2
minute
Physical Exam
General: Respiratory Distress (Negative) and Comfortable
HEENT: Normocephalic and Anicteric
Cardiovascular: Irregular Rhythm (Irregularly irregular)
Respiratory: Wheeze (Negative), Crackles (R-base), Rhonchi (Negative), Non-Labored Respirations and Other (Coarse breath sounds heard bilaterally)
GI: Soft, Non Distended, Non Tender and Normal Bowel Sounds
Neurology: AO x 3 and Tremors (Negative)
Skin: Warm, Dry and Jaundice (Negative)
Labs/Micro/Reports
Lab Data
02/17/24 08:42
02/17/24 08:42
Microbiology
02/15/24 09:50 Blood/Venous Blood Culture - Preliminary
No Growth in 48 hours- Final report to follow
02/15/24 12:18 Sputum Respiratory Culture - Preliminary
02/15/24 12:18 Sputum Gram Stain - Preliminary
02/15/24 20:24 Urine Legionella Urinary Antigen - Final
Negative for Legionella pneumophila Serogroup 1 antigen.
A negative result does not rule out the possiblity of
Legionella infection due to other serogroups or species of
Legionella. Clinical correlation is recommended.
02/15/24 20:24 Urine Streptococcus pneumoniae Antigen (M - Final
Negative for Streptococcus pneumoniae antigen.
A negative result does not exclude infection with
Streptococcus pneumoniae. Clinical correlation is
recommended.
02/15/24 09:50 Nasal Swab Influenza Types A & B (ANITRA) - Final
Negative for Influenza A & B, NAAT
Negative results must be combined with clinical observations
and patient history.
Nucleic Acid Amplification test (NAAT)performed on the
[employer] platform.
[2024-02-17 10:32] VITALS: BP 111/67; BP 117/78; BP 119/61; PULSE 86; PULSE 90
--- NOTE | 2024-02-17 10:53 | W.PN.HOSP.TC ---
Today's Communication/Plan
-
Continue current care
Assessment / Plan
Assessment / Plan
Gen-AAOx3, NAD
HEENT-NC, AT, anicteric, clear oral mm
Neck-supple
CV-reg, no M, +S1/S2
Lungs-clear B/L
Abd-soft, NT, ND
Ext-no edema
Musculoskeletal-no cyanosis, clubbing
Skin-warm and dry
Neuro-grossly non-focal
Psych-calm, cooperative
Acute hypoxic respiratory insufficiency -due to community-acquired pneumonia. Suspect atypical pneumonia such as mycobacterial infection given chest x-ray findings. She is immunosuppressed. Oxygenation improved, now on room air.
Qualifies for nocturnal oxygen based on trending nocturnal pulse ox. Will need 2 L/min during the night. Discussed with pulmonary.
Antibiotic induced diarrhea -Imodium as needed.
Community-acquired pneumonia -slowly improving. Continue antibiotics. Chest x-ray shows patchy right upper lobe and right middle lobe opacification. Pulmonary has increased dose of prednisone to 40 mg daily. Slow outpatient taper of steroids per
pulmonary.
Persistent atrial fibrillation -continue Eliquis.
Chronic heart failure preserved EF -patient claims she is gained weight but when compared to her previous weights she is actually down 10 kg.
COPD without exacerbation
SLE
Full code
Dispo -pulmonary okay with discharge. Continue antibiotics on discharge. Prednisone taper. I spoke with patient's daughter Kathleen on the phone and she requested 1 more day. Can discharge tomorrow. Visiting nursing to begin. Home oxygen to be
arranged by case management. Discussed with case management.
Anticipated Discharge: Within 24 hours
Subjective/Interval History
-
Date of Service: February 17, 2024
Patient seen and examined. Complaining of lightheadedness, cough.
Objective Data
-
Labs:
Laboratory Results
02/17/24
08:42
WBC 11.4 H
Hgb 12.4
Hct 35.0 L
Plt Count 252
Sodium 135
Potassium 4.4
Chloride 97 L
Carbon Dioxide 29
BUN 31 H
Creatinine 0.8
Glucose 105 H
Calcium 9.6
Total Bilirubin 0.6
AST 56 H
ALT 46 H
Alkaline Phosphatase 76
Vital Signs:
Vital Signs
Temp Pulse Resp BP Pulse Ox
97.9 F 75 18 121/74 95
02/17/24 07:25 02/17/24 08:17 02/17/24 08:17 02/17/24 07:25 02/17/24 08:17
I&O
02/16/24 02/17/24 02/18/24
06:59 06:59 06:59
Intake Total 720 / 720 1330 / 1330
Balance 720 / 720 1330 / 1330
Review of Systems
-
History Source: Patient
All other systems: Reviewed and negative
[2024-02-17] MEDS: ZITHROMAX INFUSION 250 IV (11:29)
--- NOTE | 2024-02-17 11:44 | CM ---
CM spoke with patients daughter, Kathleen, discussed patient qualifies for nocturnal oxygen, clinicals faxed to Lindsay at [facility]. Daughter requesting VN for mother, referral [facility] to [facility], family requesting [facility] if possible. Daughter reports family
members will provide transportation home tomorrow. CM will continue to follow for all discharge planning needs.
Plan; home with nocturnal O2 and [facility]
--- NOTE | 2024-02-17 13:11 | VNURNOTE ---
Home health liaison met with patient to discuss VN services, visit scheduling/frequency, homebound status and pet policy. Patient is familar with [facility] because her is on services. She understands home visits will be 1-2 times a week to
assess and teach medical management. Patient aware a visiting nurse will contact them for start of care within 1-2 days after discharge from . [facility] Referral completed in care port. Oxygen set up by case management.
[2024-02-17 15:07] VITALS: BP 133/63
[2024-02-17] MEDS: ANESTHETIC LOZENGE 1 LOZENGE PO ×2 (19:03→21:48)
[2024-02-17] MEDS: ROCEPHIN 1000 MG IV (21:45)
[2024-02-17] MEDS: STERILE WATER FOR INJECTION 10 ML IV (21:45)
[2024-02-17] MEDS: MAGNESIUM OXIDE 1000 MG PO (21:46)
[2024-02-17] MEDS: MELATONIN 5 MG PO (21:49)
[2024-02-17 23:50] VITALS: BP 117/68
[2024-02-18] MEDS: TYLENOL 650 MG PO (06:22)
[2024-02-18] MEDS: ROBITUSSIN 200 MG PO (06:23)
[2024-02-18] MEDS: TESSALON PERLES 100 MG PO (06:23)
[2024-02-18] MEDS: SYMBICORT 160/4.5 MCG INHALER 2 PUFF INH (08:27)
[2024-02-18] MEDS: SPIRIVA RESPIMAT 2.5 MCG 2 PUFF INH (08:27)
[2024-02-18] MEDS: VENTOLIN NEBULES 2.5 MG INH ×2 (08:28→12:02)
[2024-02-18 08:33] VITALS: BP 131/81
[2024-02-18] MEDS: CARDIZEM CD 180 MG PO (08:35)
[2024-02-18] MEDS: VISBIOME 1 CAP PO (08:36)
[2024-02-18] MEDS: ZINC SULFATE 220 MG PO (08:36)
[2024-02-18] MEDS: VITAMIN C 500 MG PO (08:36)
[2024-02-18] MEDS: DELTASONE 40 MG PO (08:37)
[2024-02-18] MEDS: ELIQUIS 2.5 MG PO (08:37)
[2024-02-18] MEDS: VITAMIN D3 (cholecalciferol) 50 MCG PO (08:38)
[2024-02-18] MEDS: LASIX 40 MG PO (08:38)
--- NOTE | 2024-02-18 08:58 | W.PN.HOSP.TC ---
Addendum entered and electronically signed by Pedro Herman DO 02/18/24 15:17:
Yes, pneumonia is due to haemophilus influenzae.
Original Note:
Today's Communication/Plan
-
discharge
Assessment / Plan
Assessment / Plan
Gen-AAOx3, NAD
HEENT-NC, AT, anicteric, clear oral mm
Neck-supple
CV-reg, no M, +S1/S2
Lungs-clear B/L
Abd-soft, NT, ND
Ext-no edema
Musculoskeletal-no cyanosis, clubbing
Skin-warm and dry
Neuro-grossly non-focal
Psych-calm, cooperative
Acute hypoxic respiratory insufficiency -due to community-acquired pneumonia. Oxygenation improved, now on room air.
Qualifies for nocturnal oxygen based on trending nocturnal pulse ox. Will need 2 L/min during the night. Discussed with pulmonary.
Antibiotic induced diarrhea -improving on probiotics.
Community-acquired pneumonia -slowly improving. Continue antibiotics. Chest x-ray shows patchy right upper lobe and right middle lobe opacification. Pulmonary has increased dose of prednisone to 40 mg daily. Slow outpatient taper of steroids per
pulmonary. Sputum culture positive for H. influenzae.
Persistent atrial fibrillation -continue Eliquis.
Chronic heart failure preserved EF -patient claims she is gained weight but when compared to her previous weights she is actually down 10 kg.
COPD without exacerbation
SLE
Full code
Dispo -medically stable for discharge home today with VN. Nocturnal oxygen to be arranged. Outpatient follow-up.
35 min spent in discharge process.
Anticipated Discharge: Today
Subjective/Interval History
-
Date of Service: February 18, 2024
Patient seen and examined. Overall starting to feel better. Diarrhea improving.
Objective Data
-
Vital Signs:
Vital Signs
Temp Pulse Resp BP Pulse Ox
97.5 F 79 18 131/81 96
02/17/24 23:50 02/18/24 08:33 02/18/24 08:32 02/18/24 08:33 02/18/24 08:32
I&O
02/17/24 02/18/24 02/19/24
06:59 06:59 06:59
Intake Total 1330 / 1330 480 / 480
Balance 1330 / 1330 480 / 480
Review of Systems
-
History Source: Patient
All other systems: Reviewed and negative
--- NOTE | 2024-02-18 09:13 | W.DS.TRANS ---
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
-
Discharge Instructions:
Sleep Apnea Risk Low
Discharge Diagnosis/Procedures Community-acquired pneumonia
Diet 2 Gram Sodium
Activity As tolerated
Driving Restrictions As prior to admission
Bathing Restrictions None
Instructions:
Stand-Alone Forms:
Changes to Home Medications: No
Discharge Medications:
DC Medications w/original date entered in [facility]
ascorbic acid (vitamin C) 500 mg tablet (Vitamin C) 500 mg PO DAILY Supplement 05/24/21
vitamin E 268 mg (400 unit) capsule 268 mg PO DAILY Supplement 07/13/23
furosemide 20 mg tablet 40 mg PO DAILY Fluid Retention/Swelling 08/18/23
albuterol sulfate 1.25 mg/3 mL solution for nebulization 1.25 mg inhalation R Q4HPRN PRN sob 11/18/23
apixaban 2.5 mg tablet (Eliquis) 2.5 mg PO BID Blood Clot Prevention/Tx 11/18/23
benzonatate 100 mg capsule 100 mg PO TIDPRN PRN cough 11/18/23
budesonide 160 mcg-glycopyr 9 mcg-formot 4.8 mcg/actuation HFA inhaler (Breztri Aerosphere) 2 inh inhalation R BID Lung/Breathing Issues 11/18/23
diltiazem HCl 180 mg capsule,24 hr,extended release 180 mg PO DAILY Blood Pressure 11/18/23
peg 400-propylene glycol (PF) 0.4 %-0.3 % eye drops in a dropperette (Systane (PF)) 1 drp BOTH EYES DAILY dry eyes 11/18/23
Xclear 1 spray intranasal BID dry nares/allergies 02/15/24
iwzlhym-bxgcrylmohfpo-wzghzyiz 250 mg-250 mg-65 mg tablet (Excedrin Migraine) 1 tab PO DAILYPRN PRN migraine 02/15/24
cholecalciferol (vitamin D3) 50 mcg (2,000 unit) tablet (Vitamin D3) 50 mcg PO DAILY Supplement 02/15/24
codeine 10 mg-guaifenesin 100 mg/5 mL oral liquid 10 ml PO DAILYPRN PRN cough 02/15/24
magnesium oxide 1,000 mg PO HS Supplement 02/15/24
zinc sulfate 50 mg zinc (220 mg) capsule 120 mg PO DAILY Supplement 02/15/24
amoxicillin 875 mg-potassium clavulanate 125 mg tablet 1 tab PO BID #12 tabs 02/18/24
prednisone 10 mg tablet 10 mg PO DAILY Anti-Inflammatory #50 tabs 02/18/24
Home Medication Changes
Pending Results: No
--- NOTE | 2024-02-18 10:38 | CM ---
Patient seen bedside, plan for discharge today. Patient reports she spoke to her daughter, she is on her way to bring patient home. CM confirmed with [employer], nocturnal O2 will be delivered to patients home today. CM sent update to [facility] on patients
discharge. IMM reviewed, signed, placed in chart. CM will continue to follow for all discharge planning needs.
Plan; home with [facility] and O2 through [facility].
[2024-02-18 12:12] VITALS: BP 138/78
--- NOTE | 2024-02-18 14:17 | PN.CDI ---
CDI
- -
CDI:
Physician Documentation Request
Admit Date: 02/15/24 12:03
Dear Doctor Virgil,
Patient admitted with Acute hypoxic respiratory insufficiency -due to community-acquired pneumonia
Sputum culture positive for Haemophilus influenzae
Please clarify if a relationship exist between these conditions:
Yes, pneumonia is related to/associated with/due to haemophilus influenzae.
No, pneumonia is not related to/associated with/due to haemophilus influenzae
Unable to determine
Use of terms such as suspected, likely, concern for, or probable (associated with a specific diagnosis that is being evaluated, monitored, or treated as if it exists) are acceptable and can be coded in the inpatient setting, when documented at the
time of discharge.
Thank you,
Gwendolyn Cleveland RN, BSN
CDI Specialist
tiger text
Please use your independent medical judgment in providing your response.
--- NOTE | 2024-02-18 19:51 | W.PN.PUL3 ---
Today's Communication / Plan
-
Prednisone with extended taper given chronic OCS use
Abx -plan for 7 days total beta-lactam, 5 days zithromax
Maintenance inhalers + nebulized albuterol w/ prn doses in between - resume home regimen upon discharge
Anti-tussants prn
Trend LFTs
Follow-up blood culture - NGTD
2L/min with sleep - case management to set this up -can repeat nocturnal oximetry study as an outpatient
Should also consider discussing biologic therapy initiation as an outpatient (I would recommend either: Dupixent vs Tezpire) in an effort to get patient off of her prednisone due to her history of COPD/asthma
Patient being prepared for discharge home. We will arrange for outpatient follow-up with Dr. Shultz when she is ready for discharge. Pulmonary service will now sign off. Please reconsult if there are any additional questions/concerns, or if
patient's respiratory status deteriorates.GTD
Assessment
-
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
who presents with cough X 10 days with green�yellow phlegm. When EMS arrived SpO2 was 90-93%, and she was placed onto 4 L/min for transport here to ER. Patient had temperature of 100.7 �F this morning, and she took Tylenol for this. Last week
she saw her PCP who prescribed amoxicillin for 7 days as well as raised her prednisone to 20 mg daily patient afebrile in the ER at 98.5 �F, pulse rate 87, breathing at 22 breaths/min, BP 105/89 and saturating 91% on room air. Labs showed
leukocytosis to 13.6, Hb 12.7, T. bili 1.4, AST and ALT at their baseline which is slightly elevated, troponin negative x 1, proBNP 1010, and COVID antigen negative. Flu A/B swab also negative, and blood cultures were collected. CXR obtained
showing RUL patchy opacification with suspected RML opacification with small bilateral pleural effusions. Patient given Decadron, Zithromax, Lasix and DuoNebs and admitted to the hospitalist service. Pulmonary service now consulted for additional
management/recommendations.
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
Lambl's excrescences, dermatopolymyositis (Dx in 2013), aortic valve disease, persistent A-fib on Eliquis
Impression:
#CAP - right-sided (failed outpatient ABx - Amoxicillin 500mg BID x 7 days) due to Haemophilus influenzae
#Acute respiratory failure with hypoxia due to above not on oxygen therapy
#Nocturnal hypoxia
#Recently diagnosed with COVID-19 (January 2024) with post-viral cough + post-infectious fatigue; this is also the likely etiology of her hoarse voice
#COPD/asthma on chronic prednisone + Breztri - in an acute exacerbation from CAP
#Transaminitis -AST + ALT are chronically elevated slightly, however T. bili is elevated at 1.4 --> T. bili now normalized
#Hx of dermatopolymyositis - [facility] with Dr. Savage
#Persistent A-fib on Eliquis
#Reported Hx of lupus
Plan:
- Continue broad-spectrum antibiotics with azithromycin/Rocephin
- Complete 5 days zithromax, 7 days rocephin
- Continue Symbicort + Spiriva and nebulized albuterol QID + prn albuterol in between for breakthrough symptoms --> DC home back on her home inhaler regimen
- Anti-tussants prn
- Throat lozenges prn
- Follow up infectious workup with blood Cx (NGTD); Sputum Cx grew H. flu (beta-lactamase negative); urine antigens for Legionella + Strep pneumonia both negative
- Maintain SpO2 >88-94% with supplemental O2 as needed
- Continue systemic steroids w/ 40mg daily and wean down by 10mg every 4th day until back at her home dose of 10mg daily
- NOX study overnight (02/15 - 02/17/2024) showed time with SpO2 <89% of 8 minutes 56 seconds � this qualifies her for O2 with sleep --> patient should be started on nocturnal oxygen at 2 L/min
- In an attempt to try to get her off of chronic prednisone, perhaps she would be a candidate for biologic treatment with either Dupixent versus Tezspire -this can be discussed in the office; unfortunately I see no evidence of eosinophilia with
absolute eos <150 over last 1 year, hence she would not be a candidate for nucala or fasenra
- Incentive spirometer encouraged
- Trend LFTs
- Replete electrolytes with K>4, Mg>2
- Maintain euglycemia with goal BG >100 and <180
- DVT ppx - Eliquis
Patient being prepared for discharge home. We will arrange for outpatient follow-up with Dr. Shultz when she is ready for discharge. Pulmonary service will now sign off. Thank you for allowing us to be involved in the care of this patient.
Please reconsult if there are any additional questions/concerns, or if patient's respiratory status deteriorates.
Total time spent today was 25 minutes for this encounter. Time includes reviewing laboratory test/imaging results, reviewing pertinent medical records, obtaining and reviewing medical history, performing an appropriate exam, ordering medications,
tests and procedures. Time also includes documentation of this encounter, coordinating patient care and communicating with other healthcare professionals. Total time does not include separately billed tests performed on this date of service.
Data:
CXR 02-15-2024:
Patchy right upper lobe opacification and probable patchy right middle lobe opacification suspicious for pneumonia. Cannot exclude patchy lingular opacification such as pneumonia.
Likely tiny bilateral pleural effusions.
Subjective Data
-
Date of Service:
Date of Service: February 18, 2024
Chief Complaint: Pulmonary Follow Up
Subjective:
She is being prepared for discharge. She is starting to feel better. Denies CP, abdominal pain, nausea, fevers or chills.
Review of Systems
General: Other (Negative unless mentioned above)
Objective Data
Data Reviewed
Vital Signs / I&O / Oxygen:
Vital Signs
Temp Pulse Resp BP Pulse Ox
98.1 F 101 20 138/78 94
02/18/24 12:12 02/18/24 12:12 02/18/24 12:12 02/18/24 12:12 02/18/24 12:12
Intake and Output
02/17/24 02/18/24 02/19/24
06:59 06:59 06:59
Intake Total 1330 / 1330 480 / 480
Balance 1330 / 1330 480 / 480
SaO2 94
Nasal Cannula flow liters per 2
minute
Physical Exam
General: Respiratory Distress (Negative) and Comfortable
HEENT: Normocephalic and Anicteric
Cardiovascular: Irregular Rhythm (Irregularly irregular)
Respiratory: Wheeze (Negative), Crackles (R-base), Rhonchi (Negative), Non-Labored Respirations and Other (Coarse breath sounds heard bilaterally)
GI: Soft, Non Distended, Non Tender and Normal Bowel Sounds
Neurology: AO x 3 and Tremors (Negative)
Skin: Warm, Dry and Jaundice (Negative)
Labs/Micro/Reports
Lab Data
02/17/24 08:42
02/17/24 08:42
Microbiology
02/15/24 09:50 Blood/Venous Blood Culture - Preliminary
No Growth in 72 hours- Final report to follow
02/15/24 12:18 Sputum Respiratory Culture - Final
Haemophilus influenzae
02/15/24 12:18 Sputum Gram Stain - Final
02/15/24 20:24 Urine Legionella Urinary Antigen - Final
Negative for Legionella pneumophila Serogroup 1 antigen.
A negative result does not rule out the possiblity of
Legionella infection due to other serogroups or species of
Legionella. Clinical correlation is recommended.
02/15/24 20:24 Urine Streptococcus pneumoniae Antigen (M - Final
Negative for Streptococcus pneumoniae antigen.
A negative result does not exclude infection with
Streptococcus pneumoniae. Clinical correlation is
recommended.
== END 2024-02-18 12:40 | disposition home health service (06) | DRG 194 ==
LOC: 4 EAST ACU 12:03
PROVIDERS: ADMITTING PHYSICIAN Hospitalist; CONSULT PHYSICIAN Internal Medicine Critical Care Medicine; EMERGENCY PHYSICIAN Emergency Medicine; FAMILY PHYSICIAN Nurse Practitioner
DX: J14 Pneumonia due to Hemophilus influenzae (principal); I48.19 Other persistent atrial fibrillation; K52.1 Toxic gastroenteritis and colitis; I50.32 Chronic diastolic (congestive) heart failure; Z87.891 Personal history of nicotine dependence; R06.89 Other abnormalities of breathing; R09.02 Hypoxemia; I11.0 Hypertensive heart disease with heart failure; M32.10 Systemic lupus erythematosus, organ or system involvement unspecified; Z11.52 Encounter for screening for COVID-19
CPT/HCPCS: 71046; 80053; 81003; 81015; 83605; 83735; 83880; 84100; 84484; 85025; 87040; 87070; 87077; 87185; 87205; 87449; 87502; 87811; 87899; 93005; 94640; 94762; 96365; 97161; 97166; 99285

== ENCOUNTER → 2024-03-28 10:50 | Outpatient (REF) | payer MEDICARE, OTHER, SELFPAY ==
[2024-03-28 12:51] LABS: Blood Urea Nitrogen 21 mg/dl (7-17); Calcium 9.6 mg/dl (8.4-10.2); Carbon Dioxide 27 mmol/L (22-30); Chloride 99 mmol/L (98-107); Glucose 125 mg/dl (70-99); Potassium 4.1 mmol/L (3.5-5.1); Sodium 136 mmol/L (135-145); eGFR 55.21
== END ==
LOC: REG 10:50
PROVIDERS: ATTENDING PHYSICIAN Internal Medicine; FAMILY PHYSICIAN Nurse Practitioner; REFERRING PHYSICIAN Nurse Practitioner Adult Health
DX: R06.02 Shortness of breath (principal); I50.32 Chronic diastolic (congestive) heart failure; R09.89 Other specified symptoms and signs involving the circulatory and respiratory systems
CPT/HCPCS: 36415; 71046; 80048

== ENCOUNTER 2024-08-16 06:30 | Emergency (ER) | payer MEDICARE, OTHER, SELFPAY ==
[2024-08-16 06:34] VITALS: BP 130/84
--- NOTE | 2024-08-16 07:39 | ED.MUSCINJ ---
HPI-Injury
General
Chief Complaint: Fall
Source: patient
Exam Limitations: none
Time Seen by Provider: 08/16/24 07:28
History of Present Illness-Injury
Initial Injury comments:
84-year-old female on Eliquis with history of A-fib, CHF, COPD presents complaining of right chest wall pain that is worse with motion and breathing. This happened after a fall she sustained 2 days ago. She did not have any pain up until this
morning. She also fell onto her right knee. She notes this pain takes her breath away. She has not missed any doses of her Eliquis.
Past History
Past History
ED Past Medical History: Arrthythmia (afib), COPD, Other (lupus), Other (Pulm HTN, Aortic regurg,Last echo 11/04/17 EF 55-60%, thickened aortic/mitral valves) and Other (PE 1976 while , A-fib, hypertension, hyperlipidemia, COPD with
granulomatous disease)
ED Past Surgical History: None
Patient has exhibited threatening behavior?: No
Social History
Tobacco: Former smoker
Alcohol: Occasional
Drug: None
Personal:
Living: with family
Employment: Employed
Family History
Family History: Hypertension
Phy Exam
Physical Exam
Physical Exam:
General: Uncomfortable appearing female no acute respiratory distress
HEENT: Normocephalic atraumatic
Heart: Regular rate and rhythm
Lungs: Breath sounds heard all [place]
Musculoskeletal exam: Right anterior chest wall tender without step-off or deformity. Right anterior knee tender
Abdomen: Soft tender to the right upper abdomen as well.
Extremities: No cyanosis or edema
Injury Course
Orders/Labs/Results
Orders:
Orders
08/16/24 06:50
Ribs, Right 3 View W/PA Chest [CR Ribs-right 3 Vw W/pa Chest*] Urgent
Comment:
Reason For Exam: fall
08/16/24 07:38
CT Chest/abd/pel W Iv Cont Urgent
Reason For Exam: right chest pain after fall, RUQ pain after fall
Morphine Sulfate 4 mg IV NOW STA
Ondansetron Injectable [Zofran] 4 mg IV NOW STA
08/16/24 07:39
Electrocardiogram (*1) Urgent
Reason for Study: Chest Pain
EKG- Treatment ONCE
CR Knee- Right 4 Or More View* Urgent
Comment:
Reason For Exam: fall
08/16/24 08:01
Complete Blood Count/With Diff Urgent
Comprehensive Metabolic Panel Urgent
NT-proBNP Urgent
Troponin I Urgent
Abnormal Lab Results
08/16/24
08:01
MCH 33.1 H pg
(27.0-31.0)
RDW 15.9 H %
(11.5-14.5)
Abs Immat Gran (auto) 0.1 H 10^3/uL
(0-0.05)
Absolute Neuts (auto) 7.0 H 10^3/uL
(1.4-6.5)
Absolute Lymphs (auto) 0.7 L 10^3/uL
(1.2-3.4)
Absolute Monos (auto) 1.1 H 10^3/uL
(0.1-0.6)
Immature Gran % 0.6 H %
(0-0.5)
Neutrophils % 77.2 H %
(42.2-75.2)
Lymphocytes % 8.1 L %
(20.5-51.1)
Monocytes % 12.3 H %
(1.7-9.3)
BUN 19 H mg/dl
(7-17)
Glucose 109 H mg/dl
(70-99)
AST 58 H U/L
(14-36)
08/16/24 08:01
08/16/24 08:01
MDM/Problems Addressed
Differential Diagnosis Includes:
Fall right chest and upper abdominal pain. Anticoagulated on Eliquis. Right rib series ordered through triage shows no obvious acute finding. Concern for occult injury, pneumothorax or intra-abdominal injury. CT of chest abdomen and pelvis with
IV contrast ordered. X-ray right knee pending. Will check labs including BNP troponin and EKG.
*Critical Care Note
Total Time (30-74mins, 75-104mins- exclusive of procedures): Not Applicable
Update Note
Update Note:
Rib series negative. This was followed by CAT scan of chest abdomen and pelvis which was also negative for acute traumatic injury. There is a cyst noted on the pancreas. Patient reassured. Discussed with ipualbyz-at-xka in the room as well as
daughter and power of corporate attorney over the telephone. Patient lives by herself. She expresses her desire to go home. She wants to go home. Family comfortable with this. I suspect chest wall strain from the fall. The right knee x-rays were
negative. She was helped to the bathroom to ensure function and will be discharged with prednisone and Lidoderm patch
ED Attending Note
-
Portions of this chart may have been created with voice recognition software.� Occasional wrong word or��sound alike� substitutions may have occurred due to the inherent limitations of voice recognition software.
Discharge Plan
Departure
Patient Disposition: Home (Routine Discharge)
Date of Disposition: 08/16/24
Time of Disposition: 10:56
Patient with high blood pressure during this ER visit?: No
Discharge Problem:
Strain of chest wall
Instructions: Preventing falls in adults
Prescriptions:
New
lidocaine [Lidoderm] 5 % adhesive patch,medicated
1 patch topical DAILY Qty: 15 0RF
prednisone 20 mg tablet
40 mg PO DAILY 5 Days Qty: 10 0RF
No Action
ascorbic acid (vitamin C) [Vitamin C] 500 MG tablet
500 mg PO DAILY
vitamin E 268 mg (400 unit) Capsule
268 mg PO DAILY
furosemide 20 mg tablet
40 mg PO DAILY
diltiazem HCl 180 mg Capsule,Extended Release 24 Hr
180 mg PO DAILY
albuterol sulfate 1.25 mg/3 mL Solution For Nebulization
1.25 mg INHALATION R Q4HPRN PRN (Reason: sob)
benzonatate 100 mg Capsule
100 mg PO TIDPRN PRN (Reason: cough)
Systane (PF) 0.4-0.3 % Dropperette
1 drp BOTH EYES DAILY
Eliquis 2.5 mg Tablet
2.5 mg PO BID
Breztri Aerosphere 160-9-4.8 mcg/actuation Hfa Aerosol Inhaler
2 inh INHALATION R BID
magnesium oxide 500 mg magnesium Tablet
1,000 mg PO HS
codeine-guaifenesin 10-100 mg/5 mL Liquid
10 ml PO DAILYPRN PRN (Reason: cough)
Excedrin Migraine 250-250-65 mg Tablet
1 tab PO DAILYPRN PRN (Reason: migraine)
zinc sulfate 50 mg zinc (220 mg) Capsule
120 mg PO DAILY
cholecalciferol (vitamin D3) [Vitamin D3] 50 mcg (2,000 unit) Tablet
50 mcg PO DAILY
Xclear nasal spray syringe
1 spray intranasal BID
amoxicillin-pot clavulanate 875-125 mg tablet
1 tab PO BID Qty: 12 0RF
prednisone 10 mg tablet
10 mg PO DAILY Qty: 50 0RF
Rx Instructions:
4 tabs daily x4 days, 3 tabs daily x4 days, 2 tabs daily x4 days, then speak with your doctor.
Referrals:
Liz Urena MD [Family Provider] -
Activity Restrictions/Additional Instructions:
Use prednisone as directed. Use Lidoderm patch as directed. You may use Tylenol for additional pain relief. Return if worse otherwise follow-up with your doctors
Interventions
Interventions:
*Risk Screen - Suicide Last Done: 08/16/24 08:36
*General Assessment Last Done: 08/16/24 08:35
*Neglect/Abuse Screening Last Done: 08/16/24 08:36
*ED COVID-19 Vaccine History Last Done: 08/16/24 08:35
ED- Neurological Assessment Last Done: 08/16/24 10:36
Discharge Date and Time
Print Language: NAURUAN
[2024-08-16 07:46] VITALS: BMI 22.0
[2024-08-16] MEDS: ZOFRAN 4 MG IV (08:05)
[2024-08-16] MEDS: MORPHINE SULFATE 4 MG IV (08:05)
[2024-08-16 08:15] LABS: % Basophils 0.9 % (0-2); % Eosinophils 0.9 % (0-6); % Immature Granulocytes 0.6 % (0-0.5); % Lymphocytes 8.1 % (20.5-51.1); % Monocytes 12.3 % (1.7-9.3); % Neutrophils 77.2 % (42.2-75.2); Absolute Basophils 0.1 10^3/uL (0-0.2); Absolute Eosinophils 0.1 10^3/uL (0-0.7); Absolute Immature Granulocytes 0.1 10^3/uL (0-0.05); Absolute Lymphocytes 0.7 10^3/uL (1.2-3.4); Absolute Monocytes 1.1 10^3/uL (0.1-0.6); Hemoglobin 13.9 g/dL (12.0-16.0); Mean Corp Hgb Conc. 34.8 g/dL (33.0-37.0); Mean Corpuscular Hgb 33.1 pg (27.0-31.0); Mean Corpuscular Volume 95.2 fL (81.0-99.0); Mean Platelet Volume 9.3 fL (7.4-10.4); Nucleated Red Blood Cells % 0 %; Platelet Count 204 10^3/uL (130-400); Red Cell Dist. Width 15.9 % (11.5-14.5); White Blood Cell Count 9.1 10^3/uL (4.8-10.8)
[2024-08-16 08:29] LABS: ALT (SGPT) 31 U/L (0-35); AST (SGOT) 58 U/L (14-36); Albumin 4.3 g/dl (3.5-5.0); Alkaline Phosphatase 52 U/L (38-126); Blood Urea Nitrogen 19 mg/dl (7-17); Calcium 9.1 mg/dl (8.4-10.2); Carbon Dioxide 27 mmol/L (22-30); Chloride 103 mmol/L (98-107); Estimated Creatinine Clearance 62 ml/min; Glucose 109 mg/dl (70-99); Potassium 4.4 mmol/L (3.5-5.1); Sodium 139 mmol/L (135-145); Total Bilirubin 1.1 mg/dl (0.2-1.3); Total Protein 6.8 g/dl (6.3-8.2); eGFR > 60.00
[2024-08-16 08:37] LABS: Troponin I < 0.012 ng/ml
[2024-08-16 08:43] LABS: NT-proBNP 445 pg/ml
[2024-08-16 10:55] VITALS: BP 125/79
[2024-08-16] MEDS: PERCOCET 5/325 1 TABLET PO (11:17)
[2024-08-16] MEDS: DELTASONE 50 MG PO (11:17)
== END 2024-08-16 11:25 | disposition home or self-care (01) ==
LOC: EMR 06:30
PROVIDERS: Physician Assistant; EMERGENCY PHYSICIAN Emergency Medicine; FAMILY PHYSICIAN Internal Medicine
DX: S29.011A Strain of muscle and tendon of front wall of thorax, initial encounter (principal); W19.XXXA Unspecified fall, initial encounter; I11.0 Hypertensive heart disease with heart failure; I50.9 Heart failure, unspecified; E78.5 Hyperlipidemia, unspecified; I27.21 Secondary pulmonary arterial hypertension; I48.91 Unspecified atrial fibrillation; J44.9 Chronic obstructive pulmonary disease, unspecified; Z79.01 Long term (current) use of anticoagulants; Z86.711 Personal history of pulmonary embolism; Z87.891 Personal history of nicotine dependence
CPT/HCPCS: 96374; 96375; 99285; 71101; 71260; 73564; 74177; 80053; 83880; 84484; 85025; 93005; Q9967

== ENCOUNTER → 2024-12-24 09:54 | Outpatient (REF) | payer MEDICARE, OTHER, SELFPAY | LOC: RAD 09:54 | PROVIDERS: ATTENDING PHYSICIAN Internal Medicine Critical Care Medicine; FAMILY PHYSICIAN Nurse Practitioner; REFERRING PHYSICIAN Internal Medicine Rheumatology | DX: R91.8 Other nonspecific abnormal finding of lung field (principal) | CPT/HCPCS: 71250 ==

== ENCOUNTER 2025-02-22 08:21 | Inpatient (IN) | payer MEDICARE, OTHER, SELFPAY ==
--- NOTE | 2025-01-23 13:43 | CM ---
CM reviewed medical records. CM spoke with patient via live telephone. Patient confirmed demographics. Patient lives alone, but stated that she would be staying in [place] with her son for about a week post operatively. Patient does have a history
of VN , but is currently not on service with any agency. Patient does not have a SNF history. Patient stated that has a cane, walker/ Patient is active with her PCP. Patient has medication coverage .
Patient will call [facility] for her outpatient PT appointments.
PLAN: home with outpatient PT.
[2025-02-07 12:08] LABS: ALT (SGPT) 23 U/L (0-35); AST (SGOT) 35 U/L (14-36); Albumin 4.3 g/dl (3.5-5.0); Alkaline Phosphatase 79 U/L (38-126); Blood Urea Nitrogen 18 mg/dl (7-17); Calcium 9.2 mg/dl (8.4-10.2); Carbon Dioxide 25 mmol/L (22-30); Chloride 104 mmol/L (98-107); Glucose 93 mg/dl (70-99); Potassium 4.4 mmol/L (3.5-5.1); Sodium 138 mmol/L (135-145); Total Protein 7.6 g/dl (6.3-8.2); eGFR > 60.00
[2025-02-07 12:27] LABS: Hematocrit 40.6 % (37.0-47.0); Hemoglobin 13.4 g/dL (12.0-16.0); Mean Corp Hgb Conc. 33.0 g/dL (33.0-37.0); Mean Corpuscular Volume 92.3 fL (81.0-99.0); Platelet Count 160 10^3/uL (130-400); Red Cell Dist. Width 14.9 % (11.5-14.5)
[2025-02-07 12:57] LABS: Glycohemoglobin (HgbA1c) 5.5 % (4.0-5.6)
[2025-02-07 14:20] VITALS: BMI 18.7
[2025-02-07 14:53] VITALS: BMI 18.7
[2025-02-22] VITALS (15 sets, daily range): BP systolic 86–124; BP diastolic 37–96; BMI 18.7
[2025-02-22] MEDS: NORMOSOL-R/PLASMALYTE-A 1000 IV ×2 (08:40→12:10)
[2025-02-22] MEDS: TYLENOL 650 MG PO ×4 (08:47→23:46)
[2025-02-22] MEDS: CELEBREX 200 MG PO (08:48)
--- NOTE | 2025-02-22 11:57 | W.PN.ORTHO ---
Today's Communication / Plan
-
home w/ VN vs SNF when stable
Assessment
.
Dressing:
Clean, dry and intact.
Assessment:
COPD
Asthma-moderate persist
NED-2Lhs
Recurrent PNA
-incentive spirometry-standing order nebs-O2 hs-IV Decadron
Permanent Afib
-Eliquis, diltiazem-tele
HFpEF
-low dose IV Lasix-decreased IVF rate
Hypercoagulable state
hx [id number]-[id number]
-Eliquis+ SCD
Lupus
Recurrent PNA
Malnurished
-Cefadroxil ppx
Plan
.
Surgery / Date: R ROSITA Carpenter 02/22/25
DVT Prophylaxis: Other (Eliquis + SCD)
Activity:
Out of bed.
PT/OT
Discharge Plan: Home w/ VN and SNF
Vital Signs and Labs
.
Vital Signs and Labs:
Lab Results
02/07/25 10:07
02/07/25 10:07
Temp Pulse Resp BP Pulse Ox
97.9 F 66 23 108/69 97
02/22/25 11:13 02/22/25 11:45 02/22/25 11:45 02/22/25 11:45 02/22/25 11:45
[2025-02-22] MEDS: ROXICODONE 5 MG PO ×2 (12:10→14:58)
--- NOTE | 2025-02-22 12:10 | W.DS.TRANS ---
DC Summary - Bindery Chief
-
Discharge Instructions:
Sleep Apnea Risk Low
Discharge Diagnosis/Procedures R TKA Dr. Carpenter 02/22/25
Diet As tolerated
Activity With Walker,With assistance
Driving Restrictions No driving
Bathing Restrictions OK to Shower
Other Services PT,VN
Instructions:
Stand-Alone Forms: Total Hip/Knee Replacement D/C
Changes to Home Medications: Yes
Discharge Medications:
DC Medications w/original date entered in [employer]
ascorbic acid (vitamin C) 500 mg tablet (Vitamin C) 500 mg PO DAILY Supplement 05/24/21
vitamin E 268 mg (400 unit) capsule 268 mg PO DAILY Supplement 07/13/23
Held on 02/22/25. Instructions: Resume on 03/02/25.
furosemide 20 mg tablet 20 mg PO .3 TIMES A WEEK Fluid Retention/Swelling 08/18/23
apixaban 2.5 mg tablet (Eliquis) 2.5 mg PO BID Blood Clot Prevention/Tx 11/18/23
budesonide 160 mcg-glycopyr 9 mcg-formot 4.8 mcg/actuation HFA inhaler (Breztri Aerosphere) 2 inh inhalation R BID Lung/Breathing Issues 11/18/23
diltiazem HCl 180 mg capsule,24 hr,extended release 180 mg PO DAILY Blood Pressure 11/18/23
peg 400-propylene glycol (PF) 0.4 %-0.3 % eye drops in a dropperette (Systane (PF)) 1 drp BOTH EYES DAILY dry eyes 11/18/23
uuxiiou-aauwooklaimlf-svfbivpb 250 mg-250 mg-65 mg tablet (Excedrin Migraine) 1 tab PO DAILYPRN PRN migraine 02/15/24
cholecalciferol (vitamin D3) 50 mcg (2,000 unit) tablet (Vitamin D3) 50 mcg PO DAILY Supplement 02/15/24
magnesium oxide 1,000 mg PO HS Supplement 02/15/24
zinc sulfate 50 mg zinc (220 mg) capsule 120 mg PO DAILY Supplement 02/15/24
Ivig 1 unit IV QMONTH 02/06/25
turmeric 400 mg capsule 400 mg PO DAILY 02/06/25
Held on 02/22/25. Instructions: Resume on 03/02/25.
vitamin B complex 1 tab PO DAILY 02/06/25
mupirocin 2 % topical ointment 1 applic intranasal BID #1 tube 02/07/25
cefadroxil 500 mg capsule 500 mg PO BID #14 caps 02/16/25
dexamethasone 4 mg tablet 4 mg PO BID #5 tabs 02/16/25
famotidine 20 mg tablet (Pepcid) 20 mg PO HS #30 tabs 02/16/25
gabapentin 300 mg capsule 300 mg PO HS neuropathic pain/sleep #10 caps 02/16/25
ondansetron HCl 4 mg tablet 4 mg PO Q6H PRN nausea and vomiting #30 tabs 02/16/25
oxycodone 5 mg tablet 5 - 10 mg (1 - 2 x 5 mg) PO Q6H PRN moderate-severe pain #30 tabs 02/16/25
Saccharomyces boulardii 250 mg capsule (Florastor) 250 mg PO BID #1 cap 02/22/25
acetaminophen 500 mg tablet (Tylenol Extra Strength) 1,000 mg (2 x 500 mg) PO QID #0 tabs 02/22/25
docusate sodium 100 mg capsule (Colace) 100 mg PO BID stool softner #1 cap 02/22/25
empagliflozin 10 mg tablet (Jardiance) 10 mg PO DAILY 02/22/25
magnesium hydroxide 400 mg/5 mL oral suspension (Milk of Magnesia) 30 ml PO HS PRN constipation #1 mL 02/22/25
sennosides 8.6 mg tablet (Senokot) 17.2 mg (2 x 8.6 mg) PO BID laxative #2 tabs 02/22/25
Home Medication Changes
mupirocin 2 % topical ointment 1 applic intranasal BID #1 tube 02/07/25
cefadroxil 500 mg capsule 500 mg PO BID #14 caps 02/16/25
dexamethasone 4 mg tablet 4 mg PO BID #5 tabs 02/16/25
famotidine 20 mg tablet (Pepcid) 20 mg PO HS #30 tabs 02/16/25
gabapentin 300 mg capsule 300 mg PO HS neuropathic pain/sleep #10 caps 02/16/25
ondansetron HCl 4 mg tablet 4 mg PO Q6H PRN nausea and vomiting #30 tabs 02/16/25
oxycodone 5 mg tablet 5 - 10 mg (1 - 2 x 5 mg) PO Q6H PRN moderate-severe pain #30 tabs 02/16/25
Saccharomyces boulardii 250 mg capsule (Florastor) 250 mg PO BID #1 cap 02/22/25
acetaminophen 500 mg tablet (Tylenol Extra Strength) 1,000 mg (2 x 500 mg) PO QID #0 tabs 02/22/25
docusate sodium 100 mg capsule (Colace) 100 mg PO BID stool softner #1 cap 02/22/25
magnesium hydroxide 400 mg/5 mL oral suspension (Milk of Magnesia) 30 ml PO HS PRN constipation #1 mL 02/22/25
sennosides 8.6 mg tablet (Senokot) 17.2 mg (2 x 8.6 mg) PO BID laxative #2 tabs 02/22/25
Pending Results: No
--- NOTE | 2025-02-22 13:00 | PTCARENOTE ---
Received pt from PACU in bed. VSS. A fib on monitor. Neurovascular checks as documented. Normosol @ 80 L FA. R knee dressing c/d/i, small shadowing outlined from PACU, stable. Full admission and assessment as documented.
[2025-02-22] MEDS: DUONEB INH (14:49)
[2025-02-22] MEDS: FARXIGA 10 MG PO (14:52)
[2025-02-22] MEDS: ANCEF 5 IV (17:36)
[2025-02-22] MEDS: SYMBICORT 160/4.5 MCG INHALER 2 PUFF INH (18:15)
[2025-02-22] MEDS: DUONEB 3 ML INH (18:15)
[2025-02-22] MEDS: SENOKOT 17.2 MG PO (20:44)
[2025-02-22] MEDS: ELIQUIS 2.5 MG PO (20:44)
[2025-02-22] MEDS: COLACE 100 MG PO (20:44)
[2025-02-22] MEDS: DECADRON 4 MG IV (20:45)
[2025-02-22] MEDS: BACTROBAN 2% OINTMENT 1 APPLIC NASAL (20:49)
[2025-02-22] MEDS: MAGNESIUM OXIDE 1000 MG PO (20:49)
[2025-02-23] VITALS (7 sets, daily range): BP systolic 113–144; BP diastolic 60–76; PULSE 76; O2SAT 99; BMI 19.3
[2025-02-23] MEDS: ANCEF 5 IV (03:15)
[2025-02-23] MEDS: TYLENOL PO (05:19)
[2025-02-23] MEDS: DUONEB 3 ML INH ×2 (07:57→21:19)
[2025-02-23] MEDS: SYMBICORT 160/4.5 MCG INHALER 2 PUFF INH ×2 (07:57→21:18)
[2025-02-23] MEDS: SPIRIVA RESPIMAT 2.5 MCG INH (07:57)
[2025-02-23] MEDS: TYLENOL 650 MG PO ×5 (08:23→23:20)
[2025-02-23] MEDS: SENOKOT 17.2 MG PO ×2 (08:23→21:03)
[2025-02-23] MEDS: COLACE 100 MG PO ×2 (08:23→21:03)
[2025-02-23] MEDS: FARXIGA 10 MG PO (08:24)
[2025-02-23] MEDS: LASIX 10 MG IV (08:24)
[2025-02-23] MEDS: DECADRON 4 MG IV ×2 (08:24→21:03)
[2025-02-23] MEDS: ELIQUIS 2.5 MG PO ×2 (08:24→21:03)
[2025-02-23] MEDS: CARDIZEM CD 180 MG PO (08:25)
[2025-02-23] MEDS: ROXICODONE 2.5 MG PO ×2 (08:26→21:10)
--- NOTE | 2025-02-23 09:15 | CM ---
Cm met with patient in room. Patient stated that she would be staying with her family for 9 days. She has made her outpatient PT appointment for 02/24, but feels she will not be ready for discharge today. IMM given and appeal process discussed.
PLAN: home with family and outpatient PT.
[2025-02-23] MEDS: BACTROBAN 2% OINTMENT 1 APPLIC NASAL ×2 (10:34→21:02)
--- NOTE | 2025-02-23 11:41 | W.PN.ORTHO ---
Today's Communication / Plan
-
d/c am if stable--patient is unsteady with therapy and dizzy-orthostatics checked and hbvxup-mx-qzuwggsx in am
Assessment
.
Distal Motor Intact: Yes
Dressing:
Clean, dry and intact.
Assessment:
COPD
Asthma-moderate persist
NED-2Lhs
Recurrent PNA
-incentive spirometry-standing order nebs-O2 hs-IV Decadron
-sats stable RA
Permanent Afib
-Eliquis, diltiazem-stable on tele
HFpEF
-low dose IV Lasix-decreased IVF rate
RLE calf pain
Hypercoagulable state
hx HB-sgltxbhw-kzmivj
-Eliquis+ SCD
-venous duplex RLE
Lupus
Recurrent PNA
Malnurished
-Cefadroxil ppx
Plan
.
Surgery / Date: R ROSITA Carpenter 02/22/25
Activity:
Out of bed.
PT/OT
Discharge Plan: Home w/ Outpatient PT
Subjective
.
.:
Patient resting comfortably.
Vital Signs and Labs
.
Vital Signs and Labs:
Lab Results
02/07/25 10:07
02/07/25 10:07
Temp Pulse Resp BP Pulse Ox
97.8 F 86 16 122/76 97
02/23/25 07:40 02/23/25 08:03 02/23/25 08:03 02/23/25 08:23 02/23/25 08:03
Physical Exam
-
HEENT: No pallor, cyanosis, or jaundice. Throat clear.
NECK: Supple. No JVD.
RESPIRATORY: Lungs clear to auscultation.
CVS: S1, S2 normal. RRR.� No murmur, rub or gallop.
ABDOMEN: Soft, non-tender. No distension. BS+/normal.
EXTREMITIES: strength equal, no calf pain with palpation
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 No focal deficits. herbicide sprayer grossly intact
--- NOTE | 2025-02-23 12:24 | CM ---
CM sent written script to [facility] via [facility].
--- NOTE | 2025-02-23 16:31 | W.PN.UPDATE ---
Update Note
Progress Note Update
RLE below the knee dvt -gastroc-continue Eliquis and ambulation-scd on LLE only-PT am-discussed w/ surgeon
[2025-02-23] MEDS: MAGNESIUM OXIDE 1000 MG PO (21:04)
[2025-02-23] MEDS: ROXICODONE 10 MG PO (22:05)
[2025-02-24] VITALS (7 sets, daily range): BP systolic 93–130; BP diastolic 58–80; PULSE 60; O2SAT 98
[2025-02-24] MEDS: TYLENOL 650 MG PO ×6 (04:08→23:51)
[2025-02-24] MEDS: ROXICODONE 5 MG PO ×3 (04:13→16:23)
[2025-02-24] MEDS: SYMBICORT 160/4.5 MCG INHALER 2 PUFF INH ×2 (08:05→20:32)
[2025-02-24] MEDS: VENTOLIN NEBULES 2.5 MG INH ×2 (08:05→17:51)
[2025-02-24] MEDS: SPIRIVA RESPIMAT 2.5 MCG 2 PUFF INH (08:05)
[2025-02-24] MEDS: CARDIZEM CD 180 MG PO (09:04)
[2025-02-24] MEDS: FARXIGA 10 MG PO (09:05)
[2025-02-24] MEDS: SENOKOT 17.2 MG PO (09:05)
[2025-02-24] MEDS: ELIQUIS 2.5 MG PO ×2 (09:06→20:03)
[2025-02-24] MEDS: COLACE 100 MG PO (09:06)
[2025-02-24] MEDS: DECADRON 4 MG IV (09:06)
[2025-02-24] MEDS: LASIX 10 MG IV ×2 (09:07→16:20)
[2025-02-24 11:11] LABS: Troponin I < 0.012 ng/ml
--- NOTE | 2025-02-24 13:20 | PN.CDI ---
CDI
- -
CDI:
Physician Documentation Request
Admit Date: 02/22/25 08:21
Dear Kala Mendoza,
Patient is s/p Right total knee arthroplasty.
02/23 note states 'RLE below the knee dvt'
Please clarify which of the following accurately represents the acuity of the DVT
____ Acute
Chronic
____ Other
Use of terms such as suspected, likely, concern for, or probable (associated with a specific diagnosis that is being evaluated, monitored, or treated as if it exists) are acceptable and can be coded in the inpatient setting, when documented at the
time of discharge.
Thank you,
Gwendolyn Cleveland RN, BSN
CDI Specialist
tiger text
Please use your independent medical judgment in providing your response.
--- NOTE | 2025-02-24 14:30 | W.PN.ORTHO ---
Today's Communication / Plan
-
d/c
Assessment
.
Distal Motor Intact: Yes
Dressing:
Clean, dry and intact.
Assessment:
CP-radiating to L arm--02/23 pm-pain with inspiration-troponins in range-no EKG change-CT chest PE negative for clot-likely MS due to strain w/ walker
TURNER-underlying pulmonary issues-TURNER occurs at baseline-CT showing new atelectasis w/ pulmonary HTN(known)-resolution of pericardial effusion
--continue aggressive incentive spirometry and extra dose of IV Lasix w/ Midodrine

COPD
Asthma-moderate persist
NED-2Lhs
Recurrent PNA
-incentive spirometry-standing order nebs-O2 hs-IV Decadron
-sats stable RA
Permanent Afib
-Eliquis, diltiazem-stable on tele
HFpEF
-low dose IV Lasix-decreased IVF rate
RLE calf pain
Hypercoagulable state
hx MW-vpgdekzu-kakpre
-Eliquis+ SCD
-venous duplex RLE-DVT-+ acute below the knee clot gastroc
Lupus
Recurrent PNA
Malnurished
-Cefadroxil ppx
Plan
.
Surgery / Date: R ROSITA Carpenter 02/22/25
DVT Prophylaxis: Other (Eliquis-SCD)
Activity:
Out of bed.
PT/OT
Discharge Plan: Home w/ VN
Subjective
.
.:
Patient resting comfortably.
She states she had midsternal CP last night radiating to left arm--SOB at baseline.
Vital Signs and Labs
.
Vital Signs and Labs:
Lab Results
02/07/25 10:07
02/07/25 10:07
Temp Pulse Resp BP Pulse Ox
97.7 F 87 16 116/65 100
02/24/25 07:50 02/24/25 08:11 02/24/25 08:11 02/24/25 13:37 02/24/25 09:03
Physical Exam
-
HEENT: No pallor, cyanosis, or jaundice. Throat clear.
NECK: Supple. No JVD.
RESPIRATORY: Lungs clear to auscultation.
CVS: irregularly irregular-no murmur, rub or gallop.
ABDOMEN: Soft, non-tender. No distension. BS+/normal.
EXTREMITIES: strength equal, no calf pain with palpation
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 No focal deficits. inspector chief grossly intact
--- NOTE | 2025-02-24 14:55 | CM ---
Addendum entered by Lindsay Shook RN 02/24/25 15:07:
CM spoke with patient and confirmed that she would be agreeable to [facility]. Gianni is staying with family:
[address]
[place] [id number]
SHANITA updated [facility] admission RN with new referral.
PLAN: [facility] Discharge 02/25
Original Note:
CM reviewed medical records. Patient is medically cleared for discharge.
PLAN: Home with outpatient PT.
--- NOTE | 2025-02-24 15:29 | VNURNOTE ---
Home Health Liaison met with patient at bedside to discuss [facility] nurse/therapy, visits, schedule and homebound status. Patient is agreeable and understands that visits at home will be 2-3 x per week to assess and teach medical management. Patient
is aware that [facility] will contact them for start of care in 1-2 days after discharge from . Patient confirmed that her son has moved her home 02 to his house. She will be staying at his house in [place].
PM [facility] referral completed in [facility].
[2025-02-24] MEDS: SYMBICORT 160/4.5 MCG INHALER INH (17:51)
[2025-02-24] MEDS: SENOKOT PO (20:03)
[2025-02-24] MEDS: COLACE PO (20:03)
[2025-02-24] MEDS: MAGNESIUM OXIDE 1000 MG PO (21:42)
[2025-02-24] MEDS: ROXICODONE 2.5 MG PO (22:09)
[2025-02-25] VITALS (8 sets, daily range): BP systolic 108–141; BP diastolic 55–89; PULSE 73–86
[2025-02-25 00:25] LABS: Troponin I < 0.012 ng/ml
[2025-02-25] MEDS: TYLENOL PO (05:04)
[2025-02-25] MEDS: ROXICODONE 5 MG PO ×3 (05:54→15:50)
[2025-02-25] MEDS: SPIRIVA RESPIMAT 2.5 MCG 2 PUFF INH (07:27)
[2025-02-25] MEDS: SYMBICORT 160/4.5 MCG INHALER 2 PUFF INH ×2 (07:28→18:05)
[2025-02-25] MEDS: VENTOLIN NEBULES 2.5 MG INH ×2 (07:41→18:04)
[2025-02-25] MEDS: TYLENOL 650 MG PO ×4 (08:59→20:28)
[2025-02-25] MEDS: CARDIZEM CD 180 MG PO (09:00)
[2025-02-25] MEDS: FARXIGA 10 MG PO (09:00)
[2025-02-25] MEDS: ELIQUIS 2.5 MG PO ×2 (09:00→20:28)
[2025-02-25] MEDS: LASIX 10 MG IV (09:01)
--- NOTE | 2025-02-25 09:01 | W.PN.ORTHO ---
Today's Communication / Plan
-
d/c home with home care once PT completed.
Assessment
.
Distal Motor Intact: Yes
Dressing:
Clean, dry and intact.
Assessment:
POD #3 s/p right TKA.
-continue Eliquis.
-PT/OT with WBAT with walker.
-Pain control with oxycodone and tylenol.
-D/c home today with home care.
-F/u in office in 2 weeks for first post op.
Plan
.
Surgery / Date: R TKA Dr. Carpenter 02/22/25
DVT Prophylaxis: Other (Eliquis)
Activity:
Out of bed.
PT/OT
Discharge Plan: Home w/ VN
Subjective
.
.:
Patient resting comfortably in bed. Slept much better last night. Pain responding well to tylenol and oxycodone prn. Ready to go home
Vital Signs and Labs
.
Vital Signs and Labs:
Lab Results
02/07/25 10:07
02/07/25 10:07
Temp Pulse Resp BP Pulse Ox
98.4 F 80 18 129/55 99
02/25/25 08:05 02/25/25 08:05 02/25/25 08:05 02/25/25 08:05 02/25/25 08:05
Physical Exam
-
Right knee: minimal swelling. dressing c/d/i with minimal drainage. ROM 0-80 degrees. Calf soft with mild tenderness. N/v intact distally.
[2025-02-25] MEDS: SENOKOT PO ×2 (09:03→20:36)
[2025-02-25] MEDS: COLACE 100 MG PO (09:04)
--- NOTE | 2025-02-25 12:46 | CON.HOSP ---
Addendum entered and electronically signed by Danica Harrell MD 02/25/25 17:49:
I saw and examined the patient.
The NICOLE Austin's note was reviewed and I agree with the note.
Comment: 84 y/o F, admitted on Orthopedic service s/p R TKA 02/22, course complicated by Right sided DVT on Eliquis. She also had chest pain briefly but workup was negative. Hospitalist service consulted to evaluate for headache. Patient reports
waking up today with frontal headache, shoulder pains and bilateral hand tingling. also R calf pain. These symptoms were exacerbated by her PT session today. She reports dizziness. No focal weakness, no spinning sensation. No blurred vision. No
speech changes. No N/V/abd pain/Diarrhea, no chest pain or SOB.
Physical Exam
General: Well Developed, Well Nourished and No Apparent Distress
HEENT: Normocephalic, Moist Mucous Membranes and Atraumatic. Tender to palpation posterior scalp
Respiratory: Clear
Cardiac: S1/S2 and Regular Rhythm; Negative Murmur or Rub
GI: Soft, Non Tender, Non Distended and Normal Bowel Sounds
Rectal: Deferred by Provider
Musculoskeletal: No Clubbing, No Cyanosis and No Edema
Skin: Negative Rash
Neuro: AO x 3 and Nonfocal/Grossly Intact
Psych: Calm
Assessment:
headache/neck shoulder pain likely musculoskeletal pain
- CT head negative
- CT neck: moderate to severe DDD mild cord compression. No fractures
- agree with empiric steroids - plan short course
- Tylenol scheduled and prn
- cold/heat application as tolerable
- limit opiates
- Neurology also consulted; will follow their recs
Rest of plan per NICOLE Austin's note
Hospitalist service will follow
Original Note:
Family Physician
-
Family Physician: MAURICE Figueroa
Chief Complaint
-
Headache
History of Present Illness
84 year old s/p right TKA on 02/12 admitted with DVT on eliquis complaining of ANTONY,dizzy, face flushing. she woke up with frontal headache, neck pain and bilateral shoulder pain. she is complaining of bilateral hand tingling. she started having calf
pain . after walking with PT today.she was dizzy when getting up from the bed. denied spinning sensation. denied fever, chills. she feels little congested and runny nose. she had some cough yesterday. denied chest pain, sob. denied abdominal
pain,n,v,d. denied dysuria or hematuria.
patient started on steroids.
Medical History
Past Medical History
Past Medical History: Reports Other
Additional Past Medical History:
1. Osteoarthritis.
2. Labile hypertension.
3. Hyperlipidemia.
4. Permanent atrial fibrillation, pharmacological therapy with
Diltiazem and oral anticoagulation with Eliquis.
5. Congestive heart failure, preserved ejection fraction.
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
7. Lambl's excrescences.
8. Mild to moderate valvular disease.
9. Pulmonary hypertension.
10. Venous varicosities, status post left lower extremity vein ligation.
11. Asthma, moderate and persistent.
12. 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
13. Obstructive sleep apnea, on 2 liters supplemental oxygen at
bedtime.
14. Pulmonary nodules.
15. History of recurrent pneumonia.
16. Post- pulmonary embolism 1975.
17. Chronic postnasal drip and cough.
18. Reducible right inguinal hernia.
19. Nephrolithiasis.
20. Frequent headaches.
21. Systemic lupus erythematosus, on IVIG monthly.
22. Herpes simplex virus.
24. History of recurrent shingles, last episode remote.
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
26. Remote history of tobacco abus
Past Surgical History: Reports Other
Additional Past Surgical History:
left partial nephrectomy
vein ligation
Social History
Tobacco: Non-smoker
Alcohol: None
Drug: None
Family History
Family History: Reviewed & Not Pertinent
Allergies / Home Medications
Allergies reflects when Allergies were last updated in [facility].
Home Medications with original date entered in [facility]
Allergy/Medication List:
Allergies
Allergy/AdvReac Type Severity Reaction Status Date / Time
No Known Allergies Allergy Verified 02/22/25 08:32
Home Medications
ascorbic acid (vitamin C) 500 mg tablet (Vitamin C) 500 mg PO DAILY Supplement 05/24/21
vitamin E 268 mg (400 unit) capsule 268 mg PO DAILY Supplement 07/13/23
Held on 02/22/25. Instructions: Resume on 03/02/25.
furosemide 20 mg tablet 20 mg PO .3 TIMES A WEEK Fluid Retention/Swelling 08/18/23
apixaban 2.5 mg tablet (Eliquis) 2.5 mg PO BID Blood Clot Prevention/Tx 11/18/23
budesonide 160 mcg-glycopyr 9 mcg-formot 4.8 mcg/actuation HFA inhaler (Breztri Aerosphere) 2 inh inhalation R BID Lung/Breathing Issues 11/18/23
diltiazem HCl 180 mg capsule,24 hr,extended release 180 mg PO DAILY Blood Pressure 11/18/23
peg 400-propylene glycol (PF) 0.4 %-0.3 % eye drops in a dropperette (Systane (PF)) 1 drp BOTH EYES DAILY dry eyes 11/18/23
ifnenjq-ctwngsoyvkfpx-gawkrviq 250 mg-250 mg-65 mg tablet (Excedrin Migraine) 1 tab PO DAILYPRN PRN migraine 02/15/24
cholecalciferol (vitamin D3) 50 mcg (2,000 unit) tablet (Vitamin D3) 50 mcg PO DAILY Supplement 02/15/24
magnesium oxide 1,000 mg PO HS Supplement 02/15/24
zinc sulfate 50 mg zinc (220 mg) capsule 120 mg PO DAILY Supplement 02/15/24
Ivig 1 unit IV QMONTH 02/06/25
turmeric 400 mg capsule 400 mg PO DAILY 02/06/25
Held on 02/22/25. Instructions: Resume on 03/02/25.
vitamin B complex 1 tab PO DAILY 02/06/25
mupirocin 2 % topical ointment 1 applic intranasal BID #1 tube 02/07/25
cefadroxil 500 mg capsule 500 mg PO BID #14 caps 02/16/25
dexamethasone 4 mg tablet 4 mg PO BID #5 tabs 02/16/25
famotidine 20 mg tablet (Pepcid) 20 mg PO HS #30 tabs 02/16/25
gabapentin 300 mg capsule 300 mg PO HS neuropathic pain/sleep #10 caps 02/16/25
ondansetron HCl 4 mg tablet 4 mg PO Q6H PRN nausea and vomiting #30 tabs 02/16/25
oxycodone 5 mg tablet 5 - 10 mg (1 - 2 x 5 mg) PO Q6H PRN moderate-severe pain #30 tabs 02/16/25
Saccharomyces boulardii 250 mg capsule (Florastor) 250 mg PO BID #1 cap 02/22/25
acetaminophen 500 mg tablet (Tylenol Extra Strength) 1,000 mg (2 x 500 mg) PO QID #0 tabs 02/22/25
docusate sodium 100 mg capsule (Colace) 100 mg PO BID stool softner #1 cap 02/22/25
empagliflozin 10 mg tablet (Jardiance) 10 mg PO DAILY 02/22/25
magnesium hydroxide 400 mg/5 mL oral suspension (Milk of Magnesia) 30 ml PO HS PRN constipation #1 mL 02/22/25
sennosides 8.6 mg tablet (Senokot) 17.2 mg (2 x 8.6 mg) PO BID laxative #2 tabs 02/22/25
Review of Systems
-
Constitutional: Reports No Symptoms
EENT: Reports No Symptoms
Respiratory: Reports No Symptoms and Cough
Cardiac: Reports No Symptoms
Abdomen/GI: Reports No Symptoms
: Reports No Symptoms
Musculoskeletal: Reports No Symptoms
Skin: Reports No Symptoms
Neurological: Reports Dizzy and Headache
Endocrine: Reports No Symptoms
Hematologic/Lymphatic: Reports No Symptoms
Psych: Reports No Symptoms
Physical Exam
Vital Signs
Vital Signs
Temp Pulse Resp BP Pulse Ox
98.6 F 75 18 131/63 98
02/25/25 11:36 02/25/25 12:09 02/25/25 11:36 02/25/25 12:09 02/25/25 11:36
Physical Exam
General: Well Developed, Well Nourished and No Apparent Distress
HEENT: Normocephalic, Moist Mucous Membranes and Atraumatic
Respiratory: Clear
Cardiac: S1/S2 and Regular Rhythm; Negative Murmur or Rub
GI: Soft, Non Tender, Non Distended and Normal Bowel Sounds
Rectal: Deferred by Provider
Musculoskeletal: No Clubbing, No Cyanosis and No Edema
Skin: Negative Rash
Neuro: AO x 3 and Nonfocal/Grossly Intact
Psych: Calm
Laboratory Results
-
Laboratory Results
02/07/25 10:07
02/07/25 10:07
Total Bilirubin 1.2 mg/dl (0.2-1.3) 02/07/25 10:07
AST 35 U/L (14-36) 02/07/25 10:07
ALT 23 U/L (0-35) 02/07/25 10:07
Alkaline Phosphatase 79 U/L (38-126) 02/07/25 10:07
Troponin I < 0.012 ng/ml 02/24/25 23:42
Data Reviewed
-
Lab Data: Labs Reviewed
Impression / Plan
-
#headache/neck shoulder pain likely musculoskeletal pain
#b/l hands tingling
#hxt of lupus ANTONY
-started on steroids
-Tylenol prn for ANTONY
-obtain CT head and neck
-neuro consulted.
#Persistent atrial fibrillation
-continue Eliquis and Cardizem
#Chronic heart failure preserved EF
-furosemide continued
-on Jardiance
-strict I&O, daily weight
#GERD
-PPI continued
#neuropathy
-gabapentin continued
COPD without exacerbation
SLE
Full code
[2025-02-25] MEDS: DELTASONE 40 MG PO (12:57)
[2025-02-25] MEDS: COLACE PO (20:36)
[2025-02-25] MEDS: MAGNESIUM OXIDE 1000 MG PO (21:21)
[2025-02-26] MEDS: TYLENOL 650 MG PO ×3 (00:03→12:27)
[2025-02-26] MEDS: ROXICODONE 2.5 MG PO (00:07)
[2025-02-26 03:20] VITALS: BP 121/73
[2025-02-26] MEDS: TYLENOL PO (05:06)
[2025-02-26] MEDS: VENTOLIN NEBULES 2.5 MG INH (07:45)
[2025-02-26] MEDS: SPIRIVA RESPIMAT 2.5 MCG 2 PUFF INH (07:45)
[2025-02-26] MEDS: SYMBICORT 160/4.5 MCG INHALER 2 PUFF INH (07:45)
[2025-02-26 08:15] VITALS: BP 149/74
[2025-02-26] MEDS: CARDIZEM CD 180 MG PO (09:45)
[2025-02-26] MEDS: DELTASONE 40 MG PO (09:47)
[2025-02-26] MEDS: FARXIGA 10 MG PO (09:47)
[2025-02-26] MEDS: ELIQUIS 2.5 MG PO (09:48)
[2025-02-26] MEDS: LASIX 10 MG IV (09:48)
[2025-02-26] MEDS: COLACE 100 MG PO (09:53)
[2025-02-26] MEDS: SENOKOT PO (09:54)
--- NOTE | 2025-02-26 11:08 | W.PN.UPDATE ---
Update Note
Progress Note Update
84 y/o female s/p right TKR with Dr. Carpenter on 02/22/2025.
Evaluated by hospitalists yesterday due to intractable headache and n/t of the bilateral upper extremities.
Head CT with no acute abnormality. Neck CT with diffuse DDD and mild cord compression at several levels.
Added prednisone and discontinued oxycodone. Reports her h/a has improved and she will tolerate the discomfort.
Reassured that her current pain levels are normal, including her calf pain. She is on Eliquis, so low concern for progression of known DVT.
Will send tramadol and prednisone taper to her pharmacy for pain control.
Continue with tylenol q 6 hours. Ice and elevation.
Home PT and nursing upon discharge.
Will d/c home after PT today.
[2025-02-26 11:45] VITALS: BP 121/71
--- NOTE | 2025-02-26 13:19 | W.PN.UPDATE ---
Update Note
Progress Note Update
headache improved with limitation of opiates
steroids seem to be helping as well
d/w GRETCHEN Tinajero of orthopedic service - agree with short course/steroid taper at discharge
Hospitalist service will sign off, please call with questions.
[2025-02-26] MEDS: ULTRAM 50 MG PO (13:41)
--- NOTE | 2025-02-26 15:41 | CM ---
Patient is medically cleared for discharge to [facility] home with [facility] services. PT recommended outpatient PT/OT. Family will transport home.
[2025-02-26 15:45] VITALS: BP 120/80
== END 2025-02-26 16:17 | disposition home health service (06) | DRG 470 ==
LOC: 2 SOUTH 08:21
PROVIDERS: Physician Assistant Medical; ADMITTING PHYSICIAN Orthopaedic Surgery; CONSULT PHYSICIAN Internal Medicine; FAMILY PHYSICIAN Nurse Practitioner; REFERRING PHYSICIAN Internal Medicine
PROC: 0SRC0J9 Replacement of Right Knee Joint with Synthetic Substitute, Cemented, Open Approach (ICD-10-PCS; 2025-02-22)
DX: M17.11 Unilateral primary osteoarthritis, right knee (principal); I48.21 Permanent atrial fibrillation; I50.30 Unspecified diastolic (congestive) heart failure; I50.32 Chronic diastolic (congestive) heart failure; E46 Unspecified protein-calorie malnutrition; Z68.1 Body mass index [BMI] 19.9 or less, adult; J98.11 Atelectasis; R07.89 Other chest pain; I11.0 Hypertensive heart disease with heart failure; E78.5 Hyperlipidemia, unspecified; I27.20 Pulmonary hypertension, unspecified; J44.89 Other specified chronic obstructive pulmonary disease; G47.33 Obstructive sleep apnea (adult) (pediatric); M32.9 Systemic lupus erythematosus, unspecified; I82.461 Acute embolism and thrombosis of right calf muscular vein; Z79.01 Long term (current) use of anticoagulants; Z79.899 Other long term (current) drug therapy; Z86.711 Personal history of pulmonary embolism; Z87.01 Personal history of pneumonia (recurrent); Z87.891 Personal history of nicotine dependence
CPT/HCPCS: 36415; 70450; 71275; 72125; 73560; 80053; 83036; 84484; 85027; 87070; 93005; 93971; 94640; 97110; 97116; 97162; 97167; 97530; 97535; C1713; C1776; Q9967

== ENCOUNTER → 2025-04-27 14:24 | Outpatient (REF) | payer MEDICARE, OTHER, SELFPAY ==
[2025-04-27 15:09] LABS: ALT (SGPT) 26 U/L (0-35); AST (SGOT) 36 U/L (14-36); Albumin 4.4 g/dl (3.5-5.0); Alkaline Phosphatase 70 U/L (38-126); Blood Urea Nitrogen 21 mg/dl (7-17); Calcium 9.6 mg/dl (8.4-10.2); Carbon Dioxide 28 mmol/L (22-30); Chloride 102 mmol/L (98-107); Glucose 88 mg/dl (70-99); Potassium 4.5 mmol/L (3.5-5.1); Sodium 136 mmol/L (135-145); Total Protein 7.7 g/dl (6.3-8.2); eGFR > 60.00
== END ==
LOC: RAD 14:24
PROVIDERS: ATTENDING PHYSICIAN Nurse Practitioner
DX: N30.00 Acute cystitis without hematuria (principal); R10.11 Right upper quadrant pain
CPT/HCPCS: 36415; 74177; 80053; Q9967

== ENCOUNTER → 2025-06-26 11:39 | Outpatient (REF) | payer MEDICARE, OTHER, SELFPAY | LOC: RAD 11:39 | PROVIDERS: ATTENDING PHYSICIAN Internal Medicine Critical Care Medicine; FAMILY PHYSICIAN Internal Medicine | DX: R91.8 Other nonspecific abnormal finding of lung field (principal) | CPT/HCPCS: 71250 ==